=== PATIENT | female | born 1980 | race Hispanic/Latino ===

== ENCOUNTER 2018-03-20 02:29 | Inpatient (IN) | payer OTHER ==
[2018-03-20] MEDS ORDERED: Nicotine 21 MG PATCH TOP SCH (02:45)
[2018-03-20 03:50] LABS: #Eosinphils 0.2 thou/uL (0.0-0.7); #Lymphocytes 3.1 thou/uL (1.20-3.40); #Monocytes 1.2 thou/uL (0.11-0.59); #Neutrophils 9.5 thou/uL (1.40-6.50); %Basophils 0.2 % (0.0-1.0); %Eosinophils 1.7 % (0.0-10.0); %Lymphocytes 22.1 % (21.0-51.0); %Monocytes 8.6 % (0.0-10.0); %Neutrophils 67.4 % (42.0-75.0); Hemoglobin 11.5 g/dL (12.0-16.0); Mean Corpuscular Hemoglobin 33.7 pg (27.0-31.0); Mean Corpuscular Volume 93.5 fL (78.0-98.0); Mean Platelet Volume 7.7 fL (7.4-10.4); Platelet Count 213 thou/uL (130-400); RBC Distribution Width 11.9 % (11.5-14.5); Red Blood Cell (RBC) Count 3.42 mill/uL (4.20-5.40)
[2018-03-20 04:12] LABS: ALT (SGPT) 118 U/L (8-55); AST (SGOT) 50 U/L (5-34); Albumin 3.2 g/dL (3.5-5.0); Alkaline Phosphatase 76 U/L (40-150); Anion Gap 13 mmol/L (10-20); BUN (Urea Nitrogen) 9 mg/dL (7.0-18.7); Bilirubin, Total 0.2 mg/dL (0.2-1.2); Calc. Creatinine Clearance 0 mL/min (70-130); Calcium 8.7 mg/dL (7.8-10.44); Carbon Dioxide 22 mmol/L (22-29); Chloride 104 mmol/L (98-107); Estimated GFR-MDRD Greater than 90; Globulin 2.6 g/dL (2.4-3.5); Glucose 102 mg/dL (70-105); Potassium 3.6 mmol/L (3.5-5.1); Protein, Total 5.8 g/dL (6.0-8.3); Sodium 135 mmol/L (136-145)
[2018-03-20] MEDS ORDERED: Morphine 4 MG/ML VIAL ONE (04:16)
[2018-03-20] MEDS ORDERED: Ondansetron HCl/PF 4 MG/2 ML Vial ONE (04:16)
[2018-03-20] MEDS ORDERED: Promethazine HCl 25 MG/ML VIAL IM PRN (04:32)
[2018-03-20] MEDS ORDERED: Acetaminophen 500 MG TAB PO PRN (04:32)
[2018-03-20] MEDS ORDERED: Ondansetron HCl/PF 4 MG/2 ML Vial IVP PRN (04:32)
[2018-03-20] MEDS ORDERED: Butorphanol Tartrate 1 MG/ML VIAL SLOW IVP PRN (04:32)
[2018-03-20] MEDS ORDERED: cefTRIAXone\\ROCEPHIN 1 GM VIAL ONE (04:42)
[2018-03-20 05:25] VITALS: BMI 49.4
[2018-03-20 05:26] VITALS: BP 119/72
[2018-03-20] MEDS: Sodium Chloride 0.9% 1,000 ML IV SCH ×2 (05:52→21:01)
--- NOTE | 2018-03-20 08:21 | PDOC.LDHP ---
Labor and Delivery H&P Chief complaint: abdominal pain HPI: 37 year old Allergies/Adverse Reactions: Allergies Allergy/AdvReac Type Severity Reaction Status Date / Time No Known Allergies Allergy Unverified 03/14/18 02:31
--- NOTE | 2018-03-20 09:18 | PDOC.LDHP ---
Labor and Delivery H&P Chief complaint: abdominal pain HPI: 37 year at 30.5 wks by LMP/11.5 wk sono with DANIEL of 05/24/2018 that presents with sudden onset RUQ pain and nausea after eating a [employer] taco around 22:00 last night. She states she was out and about with her friend when they decided to stop for food. She denies any emesis or diarrhea. The pain was persistent and sharp, radiating to the back. Patient states she knew right away it was because of the food she ate. She waited until approximately 02:00 to come to hospital because the pain was not well tolerated. Patient denies fever, chills, dysuria, contractions, vaginal bleeding, vaginal discharge, or LoF. She endorses positive movement. Of note, patient was admitted last week for cholecystitis. She improved with nausea medication and antibiotics and was discharged home on Augmentin. Steroids for lung maturity were given during that hospitalization. ROS: General: Denies fever or chills HEENT: Denies headache or vision changes Resp: Denies shortness of breath or cough Card: Denies chest pain or palpitations : Denies dysuria. Endorses increased frequency. 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 GI: See above Dating criteria: last menstrual period, first trimester ultrasound (11.5 wk) Grav: 11 Para: 0 OB History Details: AMA, Obesity, h/o multiple (9) SABs and early intrauterine demise at 31 wks Current complications: none Abnormal US findings: No Current medications: pre- vitamins, other (ASA, Augmentin) Previous surgical history: none Social history: none - Physical Exam Vital signs reviewed and normal: yes General: NAD, resting Heart: RRR Lungs: nonlabored breathing Abdomen: gravid Extremeties: no edema FHT: category 1, variability present - OB Labs Blood type: A RH: positive Antibody Screen: negative HIV: negative RPR: negative HEPSAg: negative Urine drug screen: negative Rubella: immune - Plan -: 37YO AMA @ 30.5 weeks w/ h/o SAB x9 & IUFD @ 31 weeks who comes in with a chief complaint of abdominal pain since 10 PM yesterday. 1. Cholecystitis - Cholelithiasis with findings likely representing acute cholecystitis on abdominal ultrasound. Common bile duct 5-6 mm in diameter. - Positive Singer's sign - Vitals WNL. Afebrile. - s/p one dose of rocephin. Will restart Augmentin as that is what patient was discharged with during last hospitalization. - Will fluid resuscitate and make pt NPO for now - Continue to monitor. Consider consulting general surgery if symptoms persist or worsen. - PRN zofran - Continue to stress importance of diet modification. 2. sIUP @ 30.5 weeks: - NST reassuring with moderate variability. - No contractions on NST. - Will continue to monitor via NST. - Steroids for lung maturity given during last hospitalization. 3. AMA - Patient is following closely w/ MF specialists. 4. h/o SAB & IUFD - Patient is following closely w/ MF specialists. - NST Reassuring. No concerns at this time. Dispo: Plan to monitor patient overnight. Consider consulting general surgery if symptoms persist or worsen. <Tiara Warner - Last Filed: 03/20/18 11:13> <Breana Stuart - Last Filed: 03/21/18 11:00> Allergies/Adverse Reactions: Allergies Allergy/AdvReac Type Severity Reaction Status Date / Time No Known Allergies Allergy Unverified 03/14/18 02:31 Attending Addendum - Attending Addendum Date/Time: 03/21/18 5543 I personally evaluated the patient and discussed the management with Dr. Warner. I agree with the History, Examination, Assessment and Plan documented above with any addition or exceptions noted below. Patient with known cholecystitis admitted after eating fatty foods for fluids, antibiotics, and monitoring. <Breana Stuart - Last Filed: 03/21/18 11:00>
[2018-03-20] MEDS: Aspirin 81 mg Enteric Coated Tablet PO SCH (09:53)
[2018-03-20] MEDS: Amoxicillin/Potassium Clav 500 MG TAB PO SCH ×2 (09:53→21:01)
[2018-03-20] MEDS: Prenatal Vitamin 1 TAB PO SCH (09:53)
--- NOTE | 2018-03-20 09:53 | ULT ---
PRELIMINARY REPORT/[facility]/EMERGENTY AFTER-HOURS PROCEDURE US Abdomen Limited, Right Upper Quadrant CLINICAL HISTORY: 37 years old, female; Pain; Other: Ruq pain, HX of gb disease, 31wks preg; TECHNIQUE: Real-time ultrasound of the right upper quadrant with image documentation. COMPARISON: US Gallbladder RUQ 03/14/2018 4:09 AM FINDINGS: Liver: No acute findings. No mass. No intrahepatic bile duct dilation. Gallbladder: Multiple gallstones with acoustic shadowing. Gallbladder wall thickening and pericholecy stic fluid. Positive Singer's sign. Findings likely represent acute cholecystitis. Common bile duct: Measures about 5-6 mm in diameter. Pancreas: Limited visualization due to bowel gas. Unremarkable as visualized. Right kidney: No acute findings. No stones. No solid mass. No hydronephrosis. IMPRESSION: Cholelithiasis with findings likely representing acute cholecystitis. Thank you for allowing us to participate in the care of your patient. Dictated and Authenticated by: Lake Tompkins MD 03/20/2018 5:21 AM Central Time ([place] & [place]) FINAL REPORT GALLBLADDER ULTRASOUND: Echogenic gallstones are seen in the gallbladder. There is echogenic sludge and gallbladder wall thi ckening. Evidence of pericholecystic fluid. Positive Singer's sign. Cholelithiasis with evidence of cholecystitis. I am in agreement with the preliminary report. POS: FLAKITO
[2018-03-21] MEDS ORDERED: cefTRIAXone\\ROCEPHIN 2 GM in Sodium Chloride 0.9% 100 ML IVPB SCH (05:00)
[2018-03-21] MEDS: Amoxicillin/Potassium Clav 500 MG TAB PO SCH (09:04)
[2018-03-21] MEDS: Prenatal Vitamin 1 TAB PO SCH (09:04)
[2018-03-21] MEDS: Aspirin 81 mg Enteric Coated Tablet PO SCH (09:04)
[2018-03-21 10:05] VITALS: TEMP 98.6
--- NOTE | 2018-03-21 16:11 | DIS ---
DATE OF ADMISSION: 03/20/2018 DATE OF DISCHARGE: 03/21/2018 ADMITTING DIAGNOSES: 1. Acute abdominal pain from known cholelithiasis with a recent history of cholecystitis. 2. Intrauterine at 30 weeks and 5 days. DISCHARGE DIAGNOSES: 1. Acute abdominal pain from known cholelithiasis with a recent history of cholecystitis. 2. Intrauterine at 30 weeks and 5 days. 3. Pain resolved. CONSULTATION: None. HOSPITAL COURSE: The patient is a 37-year-old G11, P0 female with an intrauterine at 30 we eks and 5 days, who represented to labor and delivery on day of admission with sudden onset of right upper quadrant pain after eating [employer]. She has known gallstones and had recently been seen here with that for treatment of cholecystitis, empirically treated for cholecystitis. The patient was ad mitted given her recent history and uncontrolled pain. Over the last 24 plus hours, the patient repo rts that her pain has resolved and she is tolerating a diet well. Once again, she denies any nausea, vomiting, abdominal pain, cramping or bleeding. PHYSICAL EXAMINATION: VITAL SIGNS: Today day of discharge vital signs include a blood pressure of 109/59, heart rate of 66 , respiratory rate of 20, temperature 98.6. GENERAL: She appears to be in no acute distress. She has frequently been walking the halls in the ospital freely and eating without negative effects. Fetus has a tracing with a baseline in the 130s with moderate long-term variability, positive 15 x 15 accelerations, no decelerations and no contract ions on the tocometer. DISCHARGE INSTRUCTIONS: The patient is now being discharged home on hospital day #2 with instruction s to continue her home antibiotic regimen Augmentin until completed for suspected cholecystitis. The patient has also instructions to follow up with the Clinic next Thursday as scheduled for followup.
== END 2018-03-21 10:11 | disposition home or self-care (01) | DRG 781 ==
LOC: ERS 02:29 → SDC/OP 05:05 → L&D 06:11
PROVIDERS: ADMIT Obstetrics & Gynecology; ATTEND Obstetrics & Gynecology
DX: O99.613 Diseases of the digestive system complicating pregnancy, third trimester (principal); Z68.42 Body mass index [BMI] 45.0-49.9, adult; O99.213 Obesity complicating pregnancy, third trimester; E66.9 Obesity, unspecified; O09.523 Supervision of elderly multigravida, third trimester; Z3A.30 30 weeks gestation of pregnancy
CPT/HCPCS: 36415; 76705; 80053; 85025; J0595; J0696; J2270; J2405; J2550; J7050

== ENCOUNTER 2018-05-18 10:19 | Inpatient (IN) | payer OTHER ==
--- NOTE | 2018-05-18 18:31 | PDOC.FPROB ---
FMR OB H&P: HPI - History of Present Illness Chief Complaint: Elective IOL Indentification: at 39.1 wks History of Present Illness: 37 year old at 39.1 wks by LMP/11.5 wk sono with DANIEL of 05/24/2018 presents to L&D for elective IOL. Patient with 9 prior SAB's, AMA, obesity, and hx of IUFD at 31 wks. All risks were discussed with patient, and patient agrees to proceed with induction. Patient denies any vaginal bleeding, vaginal discharge, LoF, or contractions. Patient endorses good movement. 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 - Family History Family History: Insignificant FMR OB H&P: Medications - Current Home Medications: Medication Instructions Recorded Confirmed Type Aspirin [Lo-Dose Aspirin EC] 1 tablet PO DAILY 03/14/18 05/18/18 History Pnv No.95/Ferrous Fum/Folic AC 1 tablet PO DAILY 03/14/18 05/18/18 History [ Multivitamin Tablet] Allergies/Adverse Reactions: Allergies Allergy/AdvReac Type Severity Reaction Status Date / Time No Known Allergies Allergy Verified 05/18/18 22:36 FMR OB H&P: ROS - Review of Systems General: reports: fatigue. denies: fever/chills, recent trauma Eyes: denies: vision changes, double vision ENT: denies: nasal congestion, rhinorrhea, sore throat Cardiovascular: denies: chest pain Respiratory: denies: cough, shortness of breath Gastrointestinal: denies: abdominal pain, nausea, vomiting, diarrhea, constipation Genitourinary (Female): denies: dysuria, hematuria, vaginal discharge, vaginal pain, vaginal bleeding, contractions, vaginal pressure Musculoskeletal: denies: redness, swelling Neurologic: denies: seizures, loss of counsciousness Integumentary: denies: rash Endocrine: denies: cold intolerance, heat intolerance Hematologic/Lymphatic: denies: prolonged or excessive bleeding Psychological: denies: depression, anxiety FMR OB H&P: Vital Signs - Heart Tones Baseline: 140 Variability: moderate Acceleration: absent Deceleration: absent Category: category 1 [place] contractions every: not observed FMR OB H&P: Physical Exam - Physical Exam General: NAD, awake, alert and oriented HEENT: normocephalic and atraumatic, PERRLA, EOMI, MMM, conjunctiva clear, no scleral icterus, good dention Neck: supple, FROM Chest: non-tender to palpation, no lesions Heart: RRR, normal S1/S2, no murmurs/rubs/gallops General: CTAB, no respiratory distress, good air movement, no rales/rhonchi, no wheezing, no retractions Abdomen: gravid, non-tender Musculoskeletal: pulses present Neurological: no focal deficit Skin: no rash, good tugor, capillary refill <2 seconds Lymphatic: no unusual bruising or bleeding, no purpura Psychiatric: good judgement and insight, normal mood and affect - Pelvic Exam Cervix: no masses SVE: 1/50/-2 [place] score: 5 Membranes: intact FMR OB H&P: A/P - Problem List (1) Encounter for elective induction of labor Status: Acute Code(s): Z34.90 - ENCNTR FOR SUPRVSN OF NORMAL , UNSP, UNSP TRIMESTER (2) Obesity Status: Chronic Code(s): E66.9 - OBESITY, UNSPECIFIED (3) History of IUFD Status: Chronic Code(s): Z87.59 - PERSONAL HISTORY OF COMP OF PREG, CHLDBRTH AND THE PUERP (4) Advanced maternal age (AMA) in Status: Acute Code(s): [id number] - Disposition: Stable. Admit to L&D for induction. Discussion: Date/Time: 05/18/181828 This H&P was discussed with Dr. Chowdary who agrees with the above documentation and plan. Signature: Tiara Warner DO PGY-2 Attending Addendum - Attending Addendum Date/Time: 05/19/18 7390 I personally evaluated the patient and discussed the management with Dr. Lala. I agree with the History, Examination, Assessment and Plan documented above with any addition or exceptions noted below.
[2018-05-18] MEDS ORDERED: NS / Oxytocin 40 units/1000ml 1,000 ML IV PRN (18:47)
[2018-05-18] MEDS ORDERED: Acetaminophen 500 MG TAB PO PRN (18:47)
[2018-05-18] MEDS ORDERED: Promethazine HCl 25 MG/ML VIAL IM PRN (18:47)
[2018-05-18] MEDS ORDERED: Ondansetron PF 4 MG/2 ML Vial IVP PRN (18:47)
[2018-05-18] MEDS ORDERED: Ibuprofen 800 MG TAB PO PRN (18:47)
[2018-05-18] MEDS ORDERED: Docusate 100 MG CAP PO PRN (18:47)
[2018-05-18] MEDS ORDERED: Lidocaine 1% (PF) 30 ML VIAL SC PRN (18:47)
[2018-05-18 22:35] VITALS: BMI 49.9
[2018-05-18] MEDS: Lactated Ringer's 1,000 ML IV SCH (23:00)
[2018-05-18] MEDS: Misoprostol 100 MCG TAB VAG SCH (23:25)
--- NOTE | 2018-05-18 23:36 | PDOC.EVN ---
Event Note - Event Note Event Note: Date/Time: 05/18/18 0091 I personally evaluated the patient and discussed the management with Dr. Lala. Dr Youssef's H&P reviewed. I agree with the History, Examination, Assessment and Plan documented above with any addition or exceptions noted below. Vitals are normal. FHR is Cat 1. No significant CTXs noted. Cervix is 1/50/-3, soft midposition. [place] is 4. Cytotec induction will be initiated.
[2018-05-18 23:39] LABS: Mean Corpuscular HGB CONC 34.3 g/dL (32.0-36.0); Mean Corpuscular Hemoglobin 32.5 pg (27.0-31.0); Mean Corpuscular Volume 94.5 fL (78.0-98.0); Mean Platelet Volume 7.8 fL (7.4-10.4); Platelet Count 237 thou/uL (130-400); RBC Distribution Width 12.4 % (11.5-14.5); Red Blood Cell (RBC) Count 3.71 mill/uL (4.20-5.40); White Blood Cell (WBC) Count 12.1 thou/uL (4.8-10.8)
[2018-05-19 00:16] LABS: HBSAg Index 0.16 S/CO (0-0.99); Hep B Surf Ag Non-Reactive S/CO (NonReactive); Syphilis Antibody Nonreactive (Nonreactive); Syphilis Antibody Index 0.03 S/CO (<1.00 Non-Reactive)
[2018-05-19] MEDS: Misoprostol 100 MCG TAB VAG SCH (02:30)
--- NOTE | 2018-05-19 03:09 | PDOC.LDPN ---
Labor & Delivery Progress Note - Subjective Subjective: comfortable - Objective Vital signs reviewed and normal: yes General: NAD Uterine fundus: non tender Dilation: 1 Effacement: 50% Station: -2 FHT: category 1 [place] contractions every: not observed - Assessment (1) Advanced maternal age (AMA) in Code(s): [id number] - Current Visit: No Status: Acute (2) Encounter for elective induction of labor Code(s): Z34.90 - ENCNTR FOR SUPRVSN OF NORMAL , UNSP, UNSP TRIMESTER Current Visit: No Status: Acute (3) History of IUFD Code(s): Z87.59 - PERSONAL HISTORY OF COMP OF PREG, CHLDBRTH AND THE PUERP Current Visit: No Status: Chronic (4) Obesity Code(s): E66.9 - OBESITY, UNSPECIFIED Current Visit: No Status: Chronic (5) History of spontaneous , currently Code(s): O09.299 - SUPRVSN OF PREG W POOR REPRODCTV OR OBSTET HISTORY, UNSP TRI Current Visit: No Status: Resolved Plan: continue plan of care -: 37 year old AMA at 39.1 wks with h/o of SAB x9, IUFD at 31 wks, and cholecystitis in current presents for elective IOL 1. Elective IOL -SVE unchanged, still at /50/-2 after cytotec x1 -Will give another dose of cytotec, recheck in 3 hours - Category I strip 2. sIUP at 39.1 wks - See plan as above 3. AMA - Pt has been following with MFM 4. h/o SAB - x9 - Workup negative - Pt followed with MFM during 5. h/o IUFD - at 31 wks
--- NOTE | 2018-05-19 06:12 | PDOC.LDPN ---
Labor & Delivery Progress Note - Subjective Subjective: comfortable, vaginal pressure - Objective Vital signs reviewed and normal: yes General: NAD, breathing through contractions Uterine fundus: non tender Dilation: 1.5 Effacement: 50% Station: -2 FHT: category 1 [place] contractions every: 2min - Assessment (1) Encounter for elective induction of labor Code(s): Z34.90 - ENCNTR FOR SUPRVSN OF NORMAL , UNSP, UNSP TRIMESTER Current Visit: No Status: Acute (2) Obesity Code(s): E66.9 - OBESITY, UNSPECIFIED Current Visit: No Status: Chronic (3) History of IUFD Code(s): Z87.59 - PERSONAL HISTORY OF COMP OF PREG, CHLDBRTH AND THE PUERP Current Visit: No Status: Chronic (4) Advanced maternal age (AMA) in Code(s): [id number] - Current Visit: No Status: Acute (5) History of spontaneous , currently Code(s): O09.299 - SUPRVSN OF PREG W POOR REPRODCTV OR OBSTET HISTORY, UNSP TRI Current Visit: No Status: Resolved Plan: continue plan of care -: 37 year old AMA at 39.1 wks with h/o of SAB x9, IUFD at 31 wks, and cholecystitis in current presents for elective IOL 1. Elective IOL -SVE: 1.5/2/-2 -s/p cytotec x2 - Category I strip - difficulty picking up CTX, repositioned and now showing CTX q2min. Will hold cytotec for now and continue to watch CTX pattern 2. sIUP at 39.1 wks - See plan as above 3. AMA - Pt has been following with MFM 4. h/o SAB - x9 - Workup negative - Pt followed with MFM during 5. h/o IUFD - at 31 wks
[2018-05-19] MEDS: Lactated Ringer's 1,000 ML IV SCH ×3 (07:06→23:04)
--- NOTE | 2018-05-19 07:17 | PDOC.LDPN ---
Labor & Delivery Progress Note - Subjective Subjective: comfortable - Objective Vital signs reviewed and normal: yes General: NAD Uterine fundus: non tender SVE: by nurse Dilation: 1 Effacement: 50% Station: -2 FHT: category 1 [place] contractions every: q2-4 min - Assessment (1) Encounter for elective induction of labor Code(s): Z34.90 - ENCNTR FOR SUPRVSN OF NORMAL , UNSP, UNSP TRIMESTER Current Visit: No Status: Acute (2) Obesity Code(s): E66.9 - OBESITY, UNSPECIFIED Current Visit: No Status: Chronic (3) History of IUFD Code(s): Z87.59 - PERSONAL HISTORY OF COMP OF PREG, CHLDBRTH AND THE PUERP Current Visit: No Status: Chronic (4) Advanced maternal age (AMA) in Code(s): [id number] - Current Visit: No Status: Acute (5) History of spontaneous , currently Code(s): O09.299 - SUPRVSN OF PREG W POOR REPRODCTV OR OBSTET HISTORY, UNSP TRI Current Visit: No Status: Resolved Plan: continue plan of care, labor augmentation -: 37 year old AMA at 39.2 wks with h/o of SAB x9, IUFD at 31 wks, and cholecystitis in current presents for elective IOL 1. Elective IOL - SVE: 1.5/2/-2 at 6:05 - s/p cytotec x2 - Category I strip - CTX q2-4min. Will hold cytotec for now and continue to watch CTX pattern. 2. sIUP at 39.2 wks - See plan as above 3. AMA - Pt has been following with MFM 4. h/o SAB - x9 - Workup negative - Pt followed with MFM during 5. h/o IUFD - at 31 wks Dispo: Stable. Patient may benefit from placement of balloon if not able to tolerate cytotec d/t too many contractions.
--- NOTE | 2018-05-19 09:04 | PDOC.LDPN ---
Labor & Delivery Progress Note - Subjective Subjective: comfortable - Objective Vital signs reviewed and normal: yes General: NAD, resting Dilation: 1.5 Effacement: 50% Station: -1 FHT: category 1 (130/mod/+accel/no decel) [place] contractions every: 2-3 min - Assessment (1) Advanced maternal age (AMA) in Code(s): [id number] - Current Visit: No Status: Acute (2) Encounter for elective induction of labor Code(s): Z34.90 - ENCNTR FOR SUPRVSN OF NORMAL , UNSP, UNSP TRIMESTER Current Visit: No Status: Acute (3) History of IUFD Code(s): Z87.59 - PERSONAL HISTORY OF COMP OF PREG, CHLDBRTH AND THE PUERP Current Visit: No Status: Chronic (4) Obesity Code(s): E66.9 - OBESITY, UNSPECIFIED Current Visit: No Status: Chronic (5) History of spontaneous , currently Code(s): O09.299 - SUPRVSN OF PREG W POOR REPRODCTV OR OBSTET HISTORY, UNSP TRI Current Visit: No Status: Resolved Plan: continue plan of care -: 37 year old AMA at 39.2 wks with h/o of SAB x9, IUFD at 31 wks, and cholecystitis in current presents for elective IOL 1. Elective IOL - SVE: 1.5/50/-1 at 0900 - s/p cytotec x2 - Category I strip - CTX q2-3min. Will hold cytotec for now and continue to watch CTX pattern. 2. sIUP at 39.2 wks - See plan as above 3. AMA - Pt has been following with MFM 4. h/o SAB - x9 - Workup negative - Pt followed with MFM during 5. h/o IUFD - at 31 wks Dispo: Stable. Considering limited cervical change, plan for balloon insertion.
[2018-05-19] MEDS ORDERED: Butorphanol Tartrate 1 MG/ML VIAL ONE (09:21)
[2018-05-19] MEDS ORDERED: Butorphanol Tartrate 1 MG/ML VIAL SLOW IVP PRN (09:25)
--- NOTE | 2018-05-19 11:18 | PDOC.LDPN ---
Labor & Delivery Progress Note - Subjective Subjective: other (mild to moderate cramping) - Objective Vital signs reviewed and normal: yes General: resting Uterine fundus: non tender SVE: 1-2/75%/-2 FHT: category 1 [place] contractions every: q2 min -: 1) IUP@39 1/7 weeks with h/o recurrent abs and demise- cytotec x2 placed and ctx q2 min- balloon placed with Dr. Stuart's assistance. Currently filled to 40/40 and will increase shortly to 80/80. Category 1 FHTs.
--- NOTE | 2018-05-19 15:59 | PDOC.LDPN ---
Labor & Delivery Progress Note - Subjective Subjective: comfortable - Objective Vital signs reviewed and normal: yes General: NAD Uterine fundus: tender to palpation SVE: Balloon in place; did not fall out when tugged on at 15:00 FHT: category 1 [place] contractions every: Irregular Procedures: Added 20 cc to each balloon (cook's balloon) for total of 80 cc each - Assessment (1) Encounter for elective induction of labor Code(s): Z34.90 - ENCNTR FOR SUPRVSN OF NORMAL , UNSP, UNSP TRIMESTER Current Visit: No Status: Acute (2) Obesity Code(s): E66.9 - OBESITY, UNSPECIFIED Current Visit: No Status: Chronic (3) History of IUFD Code(s): Z87.59 - PERSONAL HISTORY OF COMP OF PREG, CHLDBRTH AND THE PUERP Current Visit: No Status: Chronic (4) Advanced maternal age (AMA) in Code(s): [id number] - Current Visit: No Status: Acute (5) History of spontaneous , currently Code(s): O09.299 - SUPRVSN OF PREG W POOR REPRODCTV OR OBSTET HISTORY, UNSP TRI Current Visit: No Status: Resolved Plan: continue plan of care -: 37 year old AMA at 39.2 wks with h/o of SAB x9, IUFD at 31 wks, and cholecystitis in current presents for elective IOL 1. Elective IOL - Balloon placed at 11:15 AM; did not fall out when tugged on at 15:00 - Remove balloon by 23:00 - s/p cytotec x2; liya too much for additional cytotec - Category I strip; reactive - CTX q4-7 minutes; not picking up contractions well on monitor 2. sIUP at 39.2 wks - See plan as above 3. AMA - Pt has been following with MFM 4. h/o SAB - x9 - Workup negative - Pt followed with MFM during 5. h/o IUFD - at 31 wks Dispo: Stable. Remove balloon at 23:00. Filled to 80/80 cc at 15:00.
[2018-05-19] MEDS: NS w/ Oxytocin 10 units 500 ML IV SCH (17:20)
--- NOTE | 2018-05-19 18:05 | PDOC.EVN ---
Event Note - Event Note Event Note: Patient started on pitocin around 17:00. Category I strip. Reactive. Continue current management. Balloon needs to be removed by 23:15 (12 hours). Tiara Warner, PGY-2
--- NOTE | 2018-05-20 01:29 | PDOC.LDPN ---
Labor & Delivery Progress Note - Subjective Subjective: comfortable, vaginal pressure - Objective Vital signs reviewed and normal: yes General: NAD Uterine fundus: non tender Dilation: 5 Effacement: 75% Station: -1 FHT: category 1 [place] contractions every: 3-4min - Assessment (1) Encounter for elective induction of labor Code(s): Z34.90 - ENCNTR FOR SUPRVSN OF NORMAL , UNSP, UNSP TRIMESTER Current Visit: No Status: Acute (2) Obesity Code(s): E66.9 - OBESITY, UNSPECIFIED Current Visit: No Status: Chronic (3) History of IUFD Code(s): Z87.59 - PERSONAL HISTORY OF COMP OF PREG, CHLDBRTH AND THE PUERP Current Visit: No Status: Chronic (4) Advanced maternal age (AMA) in Code(s): [id number] - Current Visit: No Status: Acute (5) History of spontaneous , currently Code(s): O09.299 - SUPRVSN OF PREG W POOR REPRODCTV OR OBSTET HISTORY, UNSP TRI Current Visit: No Status: Resolved
--- NOTE | 2018-05-20 01:32 | PDOC.LDPN ---
Labor & Delivery Progress Note - Subjective Subjective: comfortable - Objective Vital signs reviewed and normal: yes General: NAD Uterine fundus: non tender Dilation: 5 Effacement: 75% Station: -1 FHT: category 1 [place] contractions every: 3-4min - Assessment (1) Encounter for elective induction of labor Code(s): Z34.90 - ENCNTR FOR SUPRVSN OF NORMAL , UNSP, UNSP TRIMESTER Current Visit: No Status: Acute (2) Obesity Code(s): E66.9 - OBESITY, UNSPECIFIED Current Visit: No Status: Chronic (3) History of IUFD Code(s): Z87.59 - PERSONAL HISTORY OF COMP OF PREG, CHLDBRTH AND THE PUERP Current Visit: No Status: Chronic (4) Advanced maternal age (AMA) in Code(s): [id number] - Current Visit: No Status: Acute (5) History of spontaneous , currently Code(s): O09.299 - SUPRVSN OF PREG W POOR REPRODCTV OR OBSTET HISTORY, UNSP TRI Current Visit: No Status: Resolved Plan: continue plan of care -: 37 year old AMA at 39.1 wks with h/o of SAB x9, IUFD at 31 wks, and cholecystitis in current presents for elective IOL 1. Elective IOL -SVE: /-1 -s/p [place] balloon removal @ 2330 -s/p cytotec x2 - Category I strip - difficulty picking up CTX, will consider placement of IUPC and AROM at next check in 2 hours 2. sIUP at 39.1 wks - See plan as above 3. AMA - Pt has been following with MFM 4. h/o SAB - x9 - Workup negative - Pt followed with MFM during 5. h/o IUFD - at 31 wks
--- NOTE | 2018-05-20 02:58 | PDOC.LDPN ---
Labor & Delivery Progress Note - Objective Vital signs reviewed and normal: yes General: NAD Uterine fundus: non tender Dilation: 5 Effacement: 50% Station: -1 FHT: category 1 (normal baseline, accels present. ) [place] contractions every: 2-3 minutes AROM: clear fluid - Assessment (1) Encounter for elective induction of labor Code(s): Z34.90 - ENCNTR FOR SUPRVSN OF NORMAL , UNSP, UNSP TRIMESTER Current Visit: No Status: Acute Comment: AROM. head is engaged. [place] to pass IUPC passed head. Continue pitocin and care. (2) Obesity Code(s): E66.9 - OBESITY, UNSPECIFIED Current Visit: No Status: Chronic (3) History of IUFD Code(s): Z87.59 - PERSONAL HISTORY OF COMP OF PREG, CHLDBRTH AND THE PUERP Current Visit: No Status: Chronic (4) Advanced maternal age (AMA) in Code(s): [id number] - Current Visit: No Status: Acute
[2018-05-20] MEDS ORDERED: Fentanyl 4 mcg/Bup 0.1% Cadd 100 ML ONE ×3 (03:16→20:12)
[2018-05-20] MEDS ORDERED: Naloxone HCl 0.4 mg/ml Vial IVP PRN ×2 (04:07)
[2018-05-20] MEDS ORDERED: Acetaminophen 325 MG TAB PO PRN (04:07)
[2018-05-20] MEDS ORDERED: Promethazine HCl 25 MG/ML VIAL IM PRN (04:07)
[2018-05-20] MEDS ORDERED: diphenhydrAMINE 50 MG/ML VIAL IVP PRN (04:07)
[2018-05-20] MEDS ORDERED: ePHEDrine/0.9% NaCl/PF SYRINGE 50 mg/10 ml SLOW IVP PRN (04:07)
[2018-05-20] MEDS ORDERED: Ondansetron PF 4 MG/2 ML Vial IVP PRN (04:07)
[2018-05-20] MEDS ORDERED: Hydrocerin (Eucerin) Cream 120 gm Jar TOP PRN (04:07)
[2018-05-20] MEDS ORDERED: Lactated Ringer's 500 ML IV PRN (04:07)
[2018-05-20] MEDS: Lactated Ringer's 1,000 ML IV SCH ×2 (04:10→23:05)
[2018-05-20] MEDS ORDERED: Communication Order-Pharmacy FS SCH (04:15)
[2018-05-20] MEDS ORDERED: Fentanyl 4 mcg/Bupivacaine 0.1% Cassette 100 ML EPIDURAL SCH (04:15)
--- NOTE | 2018-05-20 06:27 | PDOC.LDPN ---
Labor & Delivery Progress Note - Assessment (1) Encounter for elective induction of labor Code(s): Z34.90 - ENCNTR FOR SUPRVSN OF NORMAL , UNSP, UNSP TRIMESTER Current Visit: No Status: Acute Comment: AROM. head is engaged. [place]ale to pass IUPC passed head. Continue pitocin and care. (2) Obesity Code(s): E66.9 - OBESITY, UNSPECIFIED Current Visit: No Status: Chronic (3) History of IUFD Code(s): Z87.59 - PERSONAL HISTORY OF COMP OF PREG, CHLDBRTH AND THE PUERP Current Visit: No Status: Chronic (4) Advanced maternal age (AMA) in Code(s): [id number] - Current Visit: No Status: Acute (5) History of spontaneous , currently Code(s): O09.299 - SUPRVSN OF PREG W POOR REPRODCTV OR OBSTET HISTORY, UNSP TRI Current Visit: No Status: Resolved
--- NOTE | 2018-05-20 09:25 | PDOC.LDPN ---
Labor & Delivery Progress Note - Subjective Subjective: comfortable, no concerns - Objective Vital signs reviewed and normal: yes General: NAD Dilation: 6 Effacement: 100% Station: -1 FHT: category 1 (130/mod/pos accel/no decel) [place] contractions every: 2 min AROM: clear fluid IUPC placed: yes Resuscitative measures: maternal IV fluids, maternal position change - Assessment (1) Advanced maternal age (AMA) in Code(s): [id number] - Current Visit: No Status: Acute (2) Encounter for elective induction of labor Code(s): Z34.90 - ENCNTR FOR SUPRVSN OF NORMAL , UNSP, UNSP TRIMESTER Current Visit: No Status: Acute Comment: AROM. head is engaged. IUPC in place. Cat 1. No cervical change since last check. Continue current management. (3) History of IUFD Code(s): Z87.59 - PERSONAL HISTORY OF COMP OF PREG, CHLDBRTH AND THE PUERP Current Visit: No Status: Chronic (4) Obesity Code(s): E66.9 - OBESITY, UNSPECIFIED Current Visit: No Status: Chronic Plan: continue plan of care, pitocin for augmentation
--- NOTE | 2018-05-20 10:51 | PDOC.LDPN ---
Labor & Delivery Progress Note - Subjective Subjective: comfortable, vaginal pressure - Objective Vital signs reviewed and normal: yes General: NAD Dilation: 7 Effacement: 100% Station: -1 FHT: category 1 (130/mod/+accel/no decel) [place] contractions every: 2-3 min AROM: clear fluid IUPC placed: yes - Assessment (1) Advanced maternal age (AMA) in Code(s): [id number] - Current Visit: No Status: Acute (2) Encounter for elective induction of labor Code(s): Z34.90 - ENCNTR FOR SUPRVSN OF NORMAL , UNSP, UNSP TRIMESTER Current Visit: No Status: Acute Comment: AROM. head is engaged. IUPC in place. Cat 1. Has epidural. Making cervical change. Continue current management. (3) History of IUFD Code(s): Z87.59 - PERSONAL HISTORY OF COMP OF PREG, CHLDBRTH AND THE PUERP Current Visit: No Status: Chronic (4) Obesity Code(s): E66.9 - OBESITY, UNSPECIFIED Current Visit: No Status: Chronic
[2018-05-20] MEDS: NS w/ Oxytocin 10 units 500 ML IV SCH (14:40)
[2018-05-20] MEDS ORDERED: CEFAZOLIN/Water 2 GM/20 ML SYRINGE ONE (21:42)
[2018-05-20] MEDS ORDERED: Bicitra 30 ML UDCUP ONE (21:42)
--- NOTE | 2018-05-20 21:48 | PDOC.LDPN ---
Labor & Delivery Progress Note - Subjective Subjective: comfortable, other (patinet has been complete for several hours (~ 5pm). Has been pushing with day team, with rest breaks. Despite maternal position changes, asynclitic presentation has not resolved. No descent since the start of the second stage.) - Objective Vital signs reviewed and normal: yes General: NAD Uterine fundus: non tender Dilation: Complete Effacement: 100% Station: 0 FHT: category 1 (moderate variabilty, accels present. Accel with scalp stim during exam.) [place] contractions every: 2-5 min Other exam findings: occiput anterior, asynclitic to matermal right AROM: clear fluid IUPC placed: yes FSE placed: yes - Assessment (1) Arrested labor Code(s): O62.1 - SECONDARY UTERINE INERTIA Current Visit: Yes Status: Acute Comment: Second stage, Due to malpostion, asynclitic. Recommended proceding with cesaran delivery. Discussed Risks benefits and alternatives. Patient is tired and prefers delivery. Risks include bleeding, hysterectomy, anesthesia complications, and . Nurses and Anesthesia notified. (2) Encounter for elective induction of labor Code(s): Z34.90 - ENCNTR FOR SUPRVSN OF NORMAL , UNSP, UNSP TRIMESTER Current Visit: No Status: Acute (3) Obesity Code(s): E66.9 - OBESITY, UNSPECIFIED Current Visit: No Status: Chronic (4) History of IUFD Code(s): Z87.59 - PERSONAL HISTORY OF COMP OF PREG, CHLDBRTH AND THE PUERP Current Visit: No Status: Chronic (5) Advanced maternal age (AMA) in Code(s): [id number] - Current Visit: No Status: Acute
[2018-05-20] MEDS ORDERED: Lidocaine 2% 10 ML INJ ONE (22:22)
[2018-05-20] MEDS ORDERED: Ondansetron PF 4 MG/2 ML Vial ONE (23:13)
[2018-05-20] MEDS ORDERED: Oxytocin 10 UNITS/ML VIAL ONE (23:13)
[2018-05-20] MEDS ORDERED: Morphine PF 1 MG/ML SYR ONE (23:13)
[2018-05-20] MEDS ORDERED: ePHEDrine/0.9% NaCl/PF SYRINGE 50 mg/10 ml ONE (23:14)
[2018-05-20] MEDS ORDERED: Methylergonovine 0.2 MG/ML VIAL ONE (23:59)
[2018-05-21] MEDS ORDERED: Misoprostol 200 MCG TAB ONE (00:02)
[2018-05-21] MEDS ORDERED: Midazolam HCl 2 mg/2 ml Vial ONE (00:04)
[2018-05-21] MEDS ORDERED: Fentanyl 100 MCG/2 ML VIAL ONE ×3 (00:05→00:24)
[2018-05-21] MEDS ORDERED: Bupivacaine 0.25% HCL 30 ML VIAL ONE (00:14)
[2018-05-21] MEDS ORDERED: Oxytocin 10 UNITS/ML VIAL ONE (00:16)
[2018-05-21] MEDS ORDERED: diphenhydrAMINE 50 MG/ML VIAL IVP PRN (00:43)
[2018-05-21] MEDS ORDERED: Promethazine HCl 25 MG SUPP PR PRN (00:43)
[2018-05-21] MEDS ORDERED: Naloxone HCl 0.4 mg/ml Vial IVP PRN ×2 (00:43)
[2018-05-21] MEDS ORDERED: Promethazine HCl 25 MG/ML VIAL IM PRN (00:43)
[2018-05-21] MEDS ORDERED: Ondansetron PF 4 MG/2 ML Vial IVP PRN ×2 (00:43→03:27)
[2018-05-21] MEDS ORDERED: Naloxone HCl 0.4 mg/ml Vial IV PRN (00:43)
[2018-05-21] MEDS ORDERED: Hydrocerin (Eucerin) Cream 120 gm Jar TOP PRN (00:43)
[2018-05-21] MEDS ORDERED: Communication Order-Pharmacy FS SCH (00:45)
[2018-05-21] MEDS ORDERED: Adacel (T-DAP) 0.5 ML VIAL IM ONE (03:27)
[2018-05-21] MEDS ORDERED: Lanolin Ointment 7 GM TUBE TOP PRN (03:27)
[2018-05-21] MEDS ORDERED: NS / Oxytocin 40 units/1000ml 1,000 ML IV SCH (03:27)
[2018-05-21] MEDS ORDERED: HYDROcodone/Acetaminophen 5/325 mg Tablet PO PRN ×3 (03:27→12:45)
[2018-05-21] MEDS ORDERED: Acetaminophen 325 MG TAB PO PRN (03:27)
[2018-05-21] MEDS: Ketorolac Tromethamine 30 MG/ML VIAL IVP PRN ×2 (03:52→12:53)
[2018-05-21] MEDS ORDERED: Acetaminophen 1,000 MG in Premix Bag 1 BAG IVPB SCH (04:45)
[2018-05-21] MEDS: Clindamycin/D5W 900 MG in Premix Bag 1 BAG IVPB SCH ×3 (04:59→21:48)
[2018-05-21] MEDS: Gentamicin Sulfate 400 MG in Sodium Chloride 0.9% 100 ML IVPB SCH (05:00)
[2018-05-21 06:34] LABS: Hemoglobin 11.3 g/dL (12.0-16.0); Mean Corpuscular HGB CONC 34.2 g/dL (32.0-36.0); Mean Corpuscular Hemoglobin 32.8 pg (27.0-31.0); Mean Corpuscular Volume 96.1 fL (78.0-98.0); Mean Platelet Volume 7.9 fL (7.4-10.4); Platelet Count 196 thou/uL (130-400); RBC Distribution Width 12.3 % (11.5-14.5); Red Blood Cell (RBC) Count 3.45 mill/uL (4.20-5.40); White Blood Cell (WBC) Count 24.5 thou/uL (4.8-10.8)
[2018-05-21] MEDS: Lactated Ringer's 1,000 ML IV SCH (08:26)
[2018-05-21] MEDS: Ferrous Sulfate 325 MG TAB PO SCH ×2 (08:26→09:09)
--- NOTE | 2018-05-21 08:27 | PDOC.OPDEL ---
OB Operative/Delivery Note Delivery Dr/Surgeon: Timmy Assist: Epi Briones Pre-Delivery Diagnosis: other (Failed induction of labor, arrest of second stage of labor (failure to descend)) Procedure/Post Delivery Dx: primary low transverse CS Weeks gestation: 39 (39.2 wks) Anesthesia: epidural - Findings A Sex: male - 1 min: 8 - 5 min: 9 - Additional Findings/Plan Placenta delivered: manual removal findings: low transverse hysterotomy without extension, normal uterus, normal tubes, normal ovaries Estimated blood loss: 1005 mL QBL Compilations/Other Findings: Procedure Note Date of Procedure: 05/20/2018 Resident Surgeon: Timmy Family Educator Surgeon: Anali Attending Surgeon: Epi Procedure: Primary low transverse caesarean section Preoperative Diagnosis: 1)Term intrauterine 2)Failed induction of labor; prolonged second stage of labor, failure of descent 3)Cholecystitis, diet controlled 4)Hx of SAB x9 Postoperative Diagnosis: 1)Term intrauterine , delivered 2)pLTCS 3)Same as above Anesthesia: Epidural Indications: The patient is a 37 year old G11,P0190 female at 39.3 weeks gestation who presented to L&D for elective induction of labor. Patient with prolonged second stage of labor and failure to descend. C/S was discussed in detail with patient, and patient desired to proceed with ceserean delivery. Procedure in Detail: After risks, benefits, and alternatives were explained to the patient, she gave informed consent. Pre-operative antibiotics included Cefazolin 2 gram IV. The patient was taken to the operating room. She was placed in the supine position with a left tilt and prepped and draped in usual sterile fashion. A Pfannenstiel incision was made with a scalpel and carried down to the level of the fascia which was sharply nicked. The fascial cut was extended bilaterally with Swatara sissors. The inferior and superior edges of the cut fascial edges were elevated with Kristina clamps and the underlying rectus muscles were sharply and bluntly dissected free. The recti were divided digitally and retracted manually. The peritoneum was entered bluntly and retracted manually. An Go O was placed in the abdomen. A low transverse score was made with the scalpel and the uterus was entered in the midline with the scalpel. Clear fluid was seen. The hysterotomy was extended manually. The infant was noted to be vertex and was delivered by fundal pressure. Mouth and nares were bulb suctioned. Cord clamped and cut and grossly normal male was handed to waiting nurse. Cord blood was obtained. Placenta was manually extracted, found to be intact with 3 vessel cord and discarded. The uterus was externalized and the endometrium was curetted with a dry lap. The uterus was closed with a running locking 0-Vicryl suture. Following this hemostasis was noted. The abdomen was irrigated with saline and suctioned free of clots. The uterus was internalized and the hysterotomy was again noted to be hemostatic. The peritoneum was closed using 2-0 Vicryl. The fascia was closed with a running non-locking 0-Vicryl suture. The subcutaneous tissue was irrigated and there were no bleeders. A running non-locking 2-0 plain gut suture was used to approximate the subcutaneous tissue. The skin was approximated with yelena and a pressure dressing was placed. All counts were correct. The patient tolerated the procedure well and was taken to the recovery room in stable condition. Quantitative Blood Loss: 1005 ml Complications: None Specimens: Cord blood sent to lab for blood type Findings: Grossly normal male infant with apgars of 8 and 9. Grossly normal placenta with 3 vessel cord discarded. Drains: Campos to gravity draining clear urine Post delivery plan: routine recovery <Tiara Warnre - Last Filed: 05/21/18 08:58> Attending Addendum - Attending Addendum Date/Time: 05/25/18 0800 additional pre- and post-op diagnosis of malpresentation (asynclitic). I personally supervised and assisted with the procedure. <Darinel Chowdary - Last Filed: 05/25/18 08:01>
--- NOTE | 2018-05-21 08:30 | PDOC.EVN ---
Event Note - Event Note Event Note: Pt had fever of 101. Started gentamicin and clindamycin due to concern for fever from prolonged laboring with resulting C section. AVSS at that time.
[2018-05-21] MEDS: Prenatal Vitamin 1 TAB PO SCH (09:09)
[2018-05-21] MEDS: Docusate Calcium (SURFAK) 240 MG CAP PO SCH ×2 (09:09→21:49)
--- NOTE | 2018-05-21 12:02 | PDOC.PP ---
Post Progress Note Post Day #: 1 Subjective: Patient doing well. She spiked a fever very early this morning and was started on Clindamycin and Gentamicin, but she states she feels well and is otherwise asymptomatic. Her pain is very well controlled, and she is not experiencing a lot of abdominal pain. is feeding well. Patient is tolerating PO. PO intake tolerated: yes Flatus: yes Ambulation: yes Vital Signs (12 hours) Temp Pulse Resp BP Pulse Ox 05/21/18 11:53 98.5 F 69 20 96/54 L 05/21/18 08:24 98.4 F 74 20 98/56 L 96 05/21/18 04:00 100.1 F H 81 20 114/60 05/21/18 03:00 100.1 F H 84 20 108/59 L 100 05/21/18 02:40 101.1 F H 83 18 125/67 100 Weight Weight 123.831 kg - Physical Examination General: NAD Cardiovascular: RRR Respiratory: non-labored breathing Abdominal: lochia (scant), no distention, appropriately TTP Fundus firm & at: umbilicus Extremities: negative homans (B) Skin: CS incision dry & intact, no rash Neurological: no gross focal deficits Psychiatric: A&Ox3, normal affect Result Diagrams: 05/21/18 06:05 Additional Labs: Post Labs Blood Type A NEGATIVE 05/18/18 23:00 Hep Bs Antigen Non-Reactive S/CO (NonReactive) 05/18/18 23:00 (1) S/P primary low transverse Code(s): Z98.891 - HISTORY OF UTERINE SCAR FROM PREVIOUS SURGERY Status: Acute (2) Obesity Code(s): E66.9 - OBESITY, UNSPECIFIED Status: Chronic (3) History of IUFD Code(s): Z87.59 - PERSONAL HISTORY OF COMP OF PREG, CHLDBRTH AND THE PUERP Status: Chronic (4) Advanced maternal age (AMA) in Code(s): [id number] - Status: Acute (5) Encounter for elective induction of labor Code(s): Z34.90 - ENCNTR FOR SUPRVSN OF NORMAL , UNSP, UNSP TRIMESTER Status: Acute (6) History of spontaneous , currently Code(s): O09.299 - SUPRVSN OF PREG W POOR REPRODCTV OR OBSTET HISTORY, UNSP TRI Status: Resolved (7) Arrested labor Code(s): O62.1 - SECONDARY UTERINE INERTIA Status: Acute Comment: Second stage, Due to malpostion, asynclitic. Recommended proceding with cesaran delivery. Discussed Risks benefits and alternatives. Patient is tired and prefers delivery. Risks include bleeding, hysterectomy, anesthesia complications, and . Nurses and Anesthesia notified. - Assessment/Plan 37 year old delivered a TAGA M at 23:57 via pLTCS for arrest of 2nd stage of labor. Apgars 8/9. s/p pLTCS - Routine PP care - Incision clean, dry, and intact - Patient feeling well this AM - Desires nexplanon for contraception - Pain well controlled with [place] - Encourage ambulation - Pt high risk, so will start on Lovenox 12 hours after epidural removed (will verify timing with nurses) Possible chorioamnionitis vs endometritis - Patient asymptomatic other than fever; denies abdominal pain and appropriately tender to palpation in abdomen - Scant bleeding - Patient with prolonged labor and >20 hours ROM - Patient started on Gentamicin and Clindamycin for treatment of infection; continue antibiotics - Continue to monitor and monitor infant for s/s of infection. - Patient afebrile since 4 AM - WBC this AM 24 - Repeat CBC in AM; monitor vital signs - Patient being started on lovenox d/t risk factors Dispo: Stable and asymptomatic. Continue to monitor. Anticipate LOS >48 hours. Tiara Warner DO PGY-2 <Tiara Warner - Last Filed: 05/21/18 12:00> Vital Signs (12 hours) Temp Pulse Resp BP Pulse Ox 05/22/18 08:17 97.8 F 71 20 111/61 97 05/22/18 04:26 98.0 F 72 18 101/58 L 05/22/18 00:50 98.5 F 86 18 117/59 L Weight Weight 123.831 kg Result Diagrams: 05/21/18 06:05 Additional Labs: Post Labs Blood Type A NEGATIVE 05/18/18 23:00 Hep Bs Antigen Non-Reactive S/CO (NonReactive) 05/18/18 23:00 <Zo Triana - Last Filed: 05/22/18 09:48> Attending Addendum - Attending Addendum Date/Time: 05/22/18944 I personally evaluated the patient and discussed the management with Dr. Warner I agree with the History, Examination, Assessment and Plan documented above with any addition or exceptions noted below- Patient without complaints. Tolerating clears. Afebrile VSS. A/P: 1) POD#1 s/p 1*LCT C/- H/H stable; continue routine care. Advance diet as tolerated. D/c [place] and begin ambulation. <Zo Triana - Last Filed: 05/22/18 09:48>
[2018-05-21] MEDS: Enoxaparin Sodium 40 MG/0.4 ML SYRINGE SC SCH (14:20)
[2018-05-21] MEDS ORDERED: Bupivacaine/Epinephrine 0.25% 30 ML VIAL ONE (15:56)
[2018-05-21] MEDS: HYDROcodone/Acetaminophen 5/325 mg Tablet PO PRN (17:57)
[2018-05-21] MEDS: Simethicone Chewable 80 MG TAB PO PRN (17:58)
[2018-05-21] MEDS: Ibuprofen 800 MG TAB PO SCH (21:48)
[2018-05-22] MEDS: Misoprostol 100 MCG TAB VAG SCH (00:42)
[2018-05-22] MEDS: HYDROcodone/Acetaminophen 5/325 mg Tablet PO PRN ×5 (00:52→21:51)
[2018-05-22] MEDS: Simethicone Chewable 80 MG TAB PO PRN ×3 (00:54→17:54)
[2018-05-22] MEDS: Gentamicin Sulfate 400 MG in Sodium Chloride 0.9% 100 ML IVPB SCH (04:26)
[2018-05-22] MEDS: Clindamycin/D5W 900 MG in Premix Bag 1 BAG IVPB SCH (05:55)
[2018-05-22] MEDS: Ibuprofen 800 MG TAB PO SCH ×3 (05:55→21:51)
--- NOTE | 2018-05-22 09:09 | PDOC.PP ---
Post Progress Note Post Day #: 2 Subjective: Patient doing well. No significant overnight events. Patient states she has some pain at incision site, but otherwise is doing well. She has not had any fever or chills since right after delivery. Patient has been ambulating and tolerating PO. PO intake tolerated: yes Flatus: yes Ambulation: yes Vital Signs (12 hours) Temp Pulse Resp BP Pulse Ox 05/22/18 08:17 97.8 F 71 20 111/61 97 05/22/18 04:26 98.0 F 72 18 101/58 L 05/22/18 00:50 98.5 F 86 18 117/59 L Weight Weight 123.831 kg - Physical Examination General: NAD Cardiovascular: RRR Respiratory: non-labored breathing Abdominal: + bowel sounds, lochia (Less than period), no distention, appropriately TTP Fundus firm & at: below umbilicus Extremities: negative homans (B) Skin: CS incision dry & intact, no rash Neurological: no gross focal deficits Psychiatric: A&Ox3, normal affect Result Diagrams: 05/21/18 06:05 Additional Labs: Post Labs Blood Type A NEGATIVE 05/18/18 23:00 Hep Bs Antigen Non-Reactive S/CO (NonReactive) 05/18/18 23:00 (1) S/P primary low transverse Code(s): Z98.891 - HISTORY OF UTERINE SCAR FROM PREVIOUS SURGERY Status: Acute (2) Obesity Code(s): E66.9 - OBESITY, UNSPECIFIED Status: Chronic (3) History of IUFD Code(s): Z87.59 - PERSONAL HISTORY OF COMP OF PREG, CHLDBRTH AND THE PUERP Status: Chronic (4) Advanced maternal age (AMA) in Code(s): [id number] - Status: Acute - Assessment/Plan 37 year old delivered a TAGA M infant at 23:57 via pLTCS for arrest of 2nd stage of labor. Apgars 8/9. s/p pLTCS for arrest of 2nd stage of labor - Routine PP care - Incision clean, dry, and intact. Plan to removal yelena and place steri strips prior to d/c. - Patient feeling well this AM; pain well controlled - Desires nexplanon for contraception - Pain well controlled with [place] - Encourage ambulation - Continue lovenox until ambulating more often Possible chorioamnionitis vs endometritis - Patient asymptomatic other than fever; denies abdominal pain and appropriately tender to palpation in abdomen - Scant bleeding; less than period - Afebrile since right after delivery - Patient with prolonged labor and >20 hours ROM - Patient started on Gentamicin and Clindamycin for treatment of infection; continue antibiotics, consider d/c tomorrow AM - Continue to monitor and monitor infant for s/s of infection. - Patient afebrile since 4 AM morning of C/S - Repeat CBC pending - Continue lovenox Rh negative - s/p rhogam PP Cholecystitis - asymptomatic currently. continue to monitor Dispo: Stable. Possible d/c home tomorrow. Tiara Warner, PGY-2 <Tiara Warner - Last Filed: 05/22/18 09:12> Vital Signs (12 hours) Temp Pulse Resp BP Pulse Ox 05/22/18 08:17 97.8 F 71 20 111/61 97 05/22/18 04:26 98.0 F 72 18 101/58 L 05/22/18 00:50 98.5 F 86 18 117/59 L Weight Weight 123.831 kg Result Diagrams: 05/21/18 06:05 Additional Labs: Post Labs Blood Type A NEGATIVE 05/18/18 23:00 Hep Bs Antigen Non-Reactive S/CO (NonReactive) 05/18/18 23:00 <Zo Triana - Last Filed: 05/22/18 09:51> Attending Addendum - Attending Addendum Date/Time: 05/22/18 0949 I personally evaluated the patient and discussed the management with Dr. Warner I agree with the History, Examination, Assessment and Plan documented above with any addition or exceptions noted below- Patient without complaints. Beginning to ambulate. Tolerating diet. Afebrile VSS. A/P: 1) POD#2 s/p 1* LCT C /S- continue to ambualte. Continue current care. <Zo Triana - Last Filed: 05/22/18 09:51>
[2018-05-22] MEDS: Ferrous Sulfate 325 MG TAB PO SCH (09:54)
[2018-05-22] MEDS: Prenatal Vitamin 1 TAB PO SCH (09:54)
[2018-05-22] MEDS: Docusate Calcium (SURFAK) 240 MG CAP PO SCH ×2 (09:54→21:50)
[2018-05-22 12:33] LABS: #Eosinphils 0.2 thou/uL (0.0-0.7); #Lymphocytes 2.5 thou/uL (1.20-3.40); #Neutrophils 9.2 thou/uL (1.40-6.50); %Basophils 0.3 % (0.0-1.0); %Eosinophils 1.8 % (0.0-10.0); %Monocytes 7.7 % (0.0-10.0); %Neutrophils 71.2 % (42.0-75.0); Hemoglobin 10.2 g/dL (12.0-16.0); Mean Corpuscular HGB CONC 33.3 g/dL (32.0-36.0); Mean Corpuscular Hemoglobin 32.4 pg (27.0-31.0); Mean Corpuscular Volume 97.3 fL (78.0-98.0); Mean Platelet Volume 8.3 fL (7.4-10.4); Platelet Count 182 thou/uL (130-400); RBC Distribution Width 12.3 % (11.5-14.5); Red Blood Cell (RBC) Count 3.15 mill/uL (4.20-5.40); White Blood Cell (WBC) Count 12.9 thou/uL (4.8-10.8)
[2018-05-22] MEDS ORDERED: Enoxaparin Sodium 40 MG/0.4 ML SYRINGE SC SCH (14:00)
[2018-05-22] MEDS: Enoxaparin Sodium 40 MG/0.4 ML SYRINGE SC SCH (15:06)
[2018-05-23] MEDS: Ibuprofen 800 MG TAB PO SCH ×2 (05:49→14:18)
[2018-05-23] MEDS: Ferrous Sulfate 325 MG TAB PO SCH ×2 (05:50→10:12)
--- NOTE | 2018-05-23 09:17 | PDOC.PP ---
Post Progress Note Post Day #: 3 Subjective: Patient doing well. No significant overnight events. Patient tolerating PO and ambulating. Patient having some difficulty with and is requesting breast pump and to talk with oncology consultant tomorrow. PO intake tolerated: yes Flatus: yes Ambulation: yes Weight Weight 123.831 kg - Physical Examination General: NAD Cardiovascular: RRR Respiratory: non-labored breathing Abdominal: + bowel sounds, lochia (less than period), no distention, appropriately TTP Extremities: negative homans (B) Skin: CS incision dry & intact, no rash Neurological: no gross focal deficits Psychiatric: A&Ox3, normal affect Result Diagrams: 05/22/18 11:57 Additional Labs: Post Labs Blood Type A NEGATIVE 05/18/18 23:00 Hep Bs Antigen Non-Reactive S/CO (NonReactive) 05/18/18 23:00 (1) S/P primary low transverse Code(s): Z98.891 - HISTORY OF UTERINE SCAR FROM PREVIOUS SURGERY Status: Acute (2) Obesity Code(s): E66.9 - OBESITY, UNSPECIFIED Status: Chronic (3) History of IUFD Code(s): Z87.59 - PERSONAL HISTORY OF COMP OF PREG, CHLDBRTH AND THE PUERP Status: Chronic (4) Advanced maternal age (AMA) in Code(s): [id number] - Status: Acute - Assessment/Plan 37 year old delivered a TAGA M at 23:57 via pLTCS for arrest of 2nd stage of labor. Apgars 8/9. s/p pLTCS for arrest of 2nd stage of labor - Routine PP care - Incision clean, dry, and intact. Plan to keep yelena in place for 5-7 days. - Patient feeling well this AM; pain well controlled - Desires nexplanon for contraception - Pain well controlled with [place]; will transition to tramadol or tylenol #3 upon d/c - Encourage ambulation; patient doing well. Will d/c lovenox. Possible chorioamnionitis vs endometritis - Patient asymptomatic other than fever which has since resolved; denies abdominal pain and appropriately tender to palpation in abdomen - Scant bleeding; less than period - Afebrile since right after delivery - Patient with prolonged labor and >20 hours ROM - Patient started on Gentamicin and Clindamycin for treatment of infection; abx d/c'd yesterday - Continue to monitor and monitor infant for s/s of infection. - Patient afebrile since 4 AM morning of C/S - WBC downtrended Rh negative - s/p rhogam PP Cholecystitis - asymptomatic currently. continue to monitor Dispo: Stable. Patient to stay additional night. Trouble with . Will have patient see oncology consultant tomorrow and try to pump with breast pump if available. Tiara Warner, DO PGY-2 <Tiara Warner - Last Filed: 05/23/18 09:14> Weight Weight 123.831 kg Result Diagrams: 05/22/18 11:57 Additional Labs: Post Labs Blood Type A NEGATIVE 05/18/18 23:00 Hep Bs Antigen Non-Reactive S/CO (NonReactive) 05/18/18 23:00 <Zo Triana - Last Filed: 05/23/18 10:00> Attending Addendum - Attending Addendum Date/Time: 05/23/18957 I personally evaluated the patient and discussed the management with Dr. Warner I agree with the History, Examination, Assessment and Plan documented above with any addition or exceptions noted below- Patient without complaints. Tolerating diet. Ambulating. Afebrile VSS. A/P: 1) POD#2 s/p 1* LCT C/S- fever resolved; off abx x 24 hours now. Continue routine care. D/C lovenox as patient is ambulating well. Anticipate d/c home tomorrow. <Zo Triana - Last Filed: 05/23/18 10:00>
[2018-05-23] MEDS: Docusate Calcium (SURFAK) 240 MG CAP PO SCH (10:11)
[2018-05-23] MEDS: Prenatal Vitamin 1 TAB PO SCH (10:11)
[2018-05-23 10:27] VITALS: BP 103/57; TEMP 97.9
[2018-05-23] MEDS: HYDROcodone/Acetaminophen 5/325 mg Tablet PO PRN (14:18)
== END 2018-05-23 15:00 | disposition home or self-care (01) | DRG 786 ==
LOC: L&D 21:54 → 3SW 05-21 03:05 → EDSTATUS 05-24 10:19
PROVIDERS: ADMIT Family Medicine; ATTEND Family Medicine
PROC: 10D00Z1 Extraction of Products of Conception, Low, Open Approach (ICD-10-PCS; principal; 2018-05-20)
PROC: 3E0P7VZ Introduction of Hormone into Female Reproductive, Via Natural or Artificial Opening (ICD-10-PCS; 2018-05-20)
PROC: 3E033VJ Introduction of Other Hormone into Peripheral Vein, Percutaneous Approach (ICD-10-PCS; 2018-05-20)
DX: O62.1 Secondary uterine inertia (principal); O41.1230 Chorioamnionitis, third trimester, not applicable or unspecified; O75.3 Other infection during labor; Z68.42 Body mass index [BMI] 45.0-49.9, adult; Z3A.39 39 weeks gestation of pregnancy; O99.62 Diseases of the digestive system complicating childbirth; K81.9 Cholecystitis, unspecified; Z37.0 Single live birth; E66.9 Obesity, unspecified; O99.214 Obesity complicating childbirth; Z87.59 Personal history of other complications of pregnancy, childbirth and the puerperium
CPT/HCPCS: 36415; 51702; 85025; 85027; 85461; 86780; 86850; 86900; 86901; 87340; 88307; 90384; 96372; C1726; J0131; J0595; J1580; J1650; J1885; J2210; J2250; J2274; J2405; J2590; J3010; J3490; J7050; S0020

== ENCOUNTER 2019-04-29 05:50 | Inpatient (IN) | payer OTHER ==
[2019-04-29] MEDS ORDERED: HYDROcodone/Acetaminophen 5/325 mg Tablet ONE (06:06)
[2019-04-29] MEDS ORDERED: Ondansetron ODT 4 MG TAB ONE (06:07)
[2019-04-29 06:58] LABS: #Basophils 0.1 thou/uL (0.0-0.2); #Eosinphils 0.4 thou/uL (0.0-0.7); #Lymphocytes 2.7 thou/uL (1.20-3.40); #Monocytes 0.8 thou/uL (0.11-0.59); #Neutrophils 10.8 thou/uL (1.40-6.50); %Basophils 0.4 % (0.0-1.0); %Eosinophils 2.7 % (0.0-10.0); %Lymphocytes 18.4 % (21.0-51.0); %Monocytes 5.5 % (0.0-10.0); Hemoglobin 12.7 g/dL (12.0-16.0); Mean Corpuscular HGB CONC 34.1 g/dL (32.0-36.0); Mean Corpuscular Hemoglobin 32.3 pg (27.0-31.0); Mean Corpuscular Volume 94.7 fL (78.0-98.0); Mean Platelet Volume 7.8 fL (7.4-10.4); Platelet Count 236 thou/uL (130-400); RBC Distribution Width 12.6 % (11.5-14.5); Red Blood Cell (RBC) Count 3.95 mill/uL (4.20-5.40); White Blood Cell (WBC) Count 14.8 thou/uL (4.8-10.8)
[2019-04-29 07:21] LABS: ALT (SGPT) 14 U/L (8-55); AST (SGOT) 12 U/L (5-34); Albumin 3.2 g/dL (3.5-5.0); Alkaline Phosphatase 84 U/L (40-110); Anion Gap 11 mmol/L (10-20); BUN (Urea Nitrogen) 8 mg/dL (7.0-18.7); Bilirubin, Total 0.2 mg/dL (0.2-1.2); Calc. Creatinine Clearance 0 mL/min (70-130); Calcium 8.4 mg/dL (7.8-10.44); Carbon Dioxide 26 mmol/L (22-29); Chloride 103 mmol/L (98-107); Estimated GFR-MDRD Greater than 90; Globulin 2.6 g/dL (2.4-3.5); Glucose 107 mg/dL (70-105); Lipase 20 U/L (8-78); Potassium 3.9 mmol/L (3.5-5.1); Protein, Total 5.8 g/dL (6.0-8.3); Sodium 136 mmol/L (136-145)
[2019-04-29 07:44] LABS: Bilirubin Negative (Negative); Blood, Urine Negative (Negative); Clarity Turbid (Clear); Glucose, Urine (Dipstick) Normal (Negative); Leukocyte 500 Leu/uL (Negative); Nitrite Negative (Negative); Protein, Urine (Dipstick) 50 mg/dL (Neg-Trace); Urobilinogen Normal mg/dL (Less than 2); WBC/HPF Greater than 50 HPF (0-3)
[2019-04-29] MEDS ORDERED: Piperacillin/Tazobactam 3.375 GM VIAL ONE (07:47)
--- NOTE | 2019-04-29 07:47 | ULT ---
RIGHT UPPER QUADRANT ABDOMINAL ULTRASOUND: COMPARISON: None. HISTORY: Abdominal pain that radiates to the back. Nausea and constipation. The patient is 28 weeks . TECHNIQUE: Multiplanar, crow scale, and color Doppler images were obtained in a right upper quadrant abdominal u ltrasound. FINDINGS: The liver is normal in echogenicity without focal lesions or intrahepatic ductal dilatation. The gal lbladder is filled with sludge. Shadowing stones are also seen in the gallbladder. There is gallbla dder wall thickening and a small amount of pericholecystic fluid. The common bile duct is upper limi ts of normal measuring 6 mm. Visualized portions of the pancreas are unremarkable. The right kidney is normal in echogenicity wit hout hydronephrosis or calculus and measures 11.7 cm in length. IMPRESSION: Cholelithiasis with findings suggesting possibly acute cholecystitis. Correlate with liver function tests and white blood cell counts. POS: C
[2019-04-29 07:54] LABS: Bacteria/HPF 1+ HPF (None Seen)
--- NOTE | 2019-04-29 10:37 | PDOC.FPRHP ---
- History of Present Illness Chief Complaint: RUQ pain with nausea History of Present Illness: 38yo 1 9 1 @ 27 wks by 1t teena presents with RUQ pain and nausea since yesterday morning. Pt states she awoke yesterday morning with this RUQ pain1 that radiated around her side and up to her right upper back. The pain was sharp stabbing in nature, and she thought she ate something the night before that was getting her reflux. She took some Alkaseltzer and pain seemed to resolved. She then went out to lunch at [employer] and sooner after had return of the RUQ pain and nausea. Pain continued into the night and she decided to present to the ED for further eval and management. She denies any fever/chills, dysuria, vomiting, CP, SOB, LE edema, RAY's or vision changes. She endorses good movement, no LOF, change in vaginal d/c, or vaginal bleeding. Did have significant RUQ pain with RUQ US probe. She states she had "gallbladder problems" in previous last February and was treated medically inpatient and ultimately had an uneventful course and delivered Apr. She was told to f/u with gen surgery for lap harshil but did not and ultimtately got again 6 months later with current . Current has been unevental and she takes no medications other than PNV and ASA since she has maternal family history of blood clots. She has had workup in the past for multiple miscarriages but has returned negative per pt. H/o Chlamydia with tx and LOC negative during this . ED Course: Given 1L NS bolus, bentyl, norco, and zofran. Started on Zosyn. Notified Dr. Carranza. Called residents for admit and further eval and management. - Allergies/Adverse Reactions Allergies Allergy/AdvReac Type Severity Reaction Status Date / Time No Known Allergies Allergy Verified 04/29/19 12:08 - Home Medications Medication Instructions Recorded Confirmed Type Aspirin [Lo-Dose Aspirin EC] 1 tablet PO DAILY 03/14/18 04/29/19 History Pnv No.95/Ferrous Fum/Folic AC 1 tablet PO DAILY 03/14/18 04/29/19 History [ Multivitamin Tablet] - History PMHx: Multiple miscarriages, negative workup thus far. H/o cholecystitis of with previous . Chlamydia during current with tx and negative LOC. Otherwise unremarkable PMHx. PSHx: None FHx: Maternal history of blood clots, unknown specifics. Social: Denies tob, EtOH, illicits. No new partners for over 2 years. Remote history of Chlamydia in teens and then 1 episode recently, no recurrent STDs. - Review of Systems General: denies: fever/chills Eyes: denies: vision changes ENT: denies: nasal congestion, rhinorrhea Respiratory: denies: cough, congestion, shortness of breath Cardiovascular: denies: chest pain, palpitation, edema Gastrointestinal: reports: nausea, abdominal pain (RUQ with radiation to back and shoulder blades). denies: vomiting, diarrhea, constipation Genitourinary: denies: incontinence, dysuria, polyuria, discharge Skin: denies: rashes Musculoskeletal: denies: pain Neurological: denies: numbness Psychological: denies: anxiety, depression - Vital signs BP: 107/57 HR: 70 RR: 17 Tmax: 98.3 Pox: 98% on RA - Physical Exam Constitutional: NAD, awake, alert and oriented HEENT: EOMI, conjunctiva clear, MMM Neck: supple Heart: RRR, normal S1/S2, no murmurs/rubs/gallops, pulses present, no edema Lungs: CTAB, no respiratory distress, good air movement, no rales/rhonchi, no wheezing Abdomen: soft, bowel sounds present, no masses/distention, other (midly TTP over RUQ under ribs, negative myers, negative psoas, no rebound or guarding) Musculoskeletal: normal structure Neurological: no focal deficit Skin: no rash/lesions Psychiatric: normal mood and affect FMR H&P: Results - Labs Result Diagrams: 04/29/19 06:48 04/29/19 06:48 Lab results: WBC 14.8 thou/uL (4.8-10.8) H 04/29/19 06:48 Hgb 12.7 g/dL (12.0-16.0) 04/29/19 06:48 Hct 37.4 % (36.0-47.0) 04/29/19 06:48 MCV 94.7 fL (78.0-98.0) 04/29/19 06:48 Plt Count 236 thou/uL (130-400) 04/29/19 06:48 Neutrophils % 73.0 % (42.0-75.0) 04/29/19 06:48 Sodium 136 mmol/L (136-145) 04/29/19 06:48 Potassium 3.9 mmol/L (3.5-5.1) 04/29/19 06:48 Chloride 103 mmol/L (98-107) 04/29/19 06:48 Carbon Dioxide 26 mmol/L (22-29) 04/29/19 06:48 BUN 8 mg/dL (7.0-18.7) 04/29/19 06:48 Creatinine 0.64 mg/dL (0.6-1.1) 04/29/19 06:48 Glucose 107 mg/dL (70-105) H 04/29/19 06:48 Calcium 8.4 mg/dL (7.8-10.44) 04/29/19 06:48 Total Bilirubin 0.2 mg/dL (0.2-1.2) 04/29/19 06:48 AST 12 U/L (5-34) 04/29/19 06:48 ALT 14 U/L (8-55) 04/29/19 06:48 Alkaline Phosphatase 84 U/L (40-110) 04/29/19 06:48 Serum Total Protein 5.8 g/dL (6.0-8.3) L 04/29/19 06:48 Albumin 3.2 g/dL (3.5-5.0) L 04/29/19 06:48 Lipase 20 U/L (8-78) 04/29/19 06:48 Urine Ketones Negative mg/dL (Negative) 04/29/19 07:25 Urine Blood Negative (Negative) 04/29/19 07:25 Urine Nitrite Negative (Negative) 04/29/19 07:25 Ur Leukocyte Esterase 500 Bety/uL (Negative) A 04/29/19 07:25 Urine RBC 4-6 HPF (0-3) A 04/29/19 07:25 Urine WBC Greater than 50 HPF (0-3) A 04/29/19 07:25 Ur Squamous Epith Cells 11-20 HPF (0-3) A 04/29/19 07:25 Urine Bacteria 1+ HPF (None Seen) 04/29/19 07:25 - Radiology Interpretation US - abdomen Status: image reviewed by me (cholithiasis with possibly cholecystitis. CBD 6mm) , report reviewed by me FMR H&P: A/P - Problem List (1) Current Visit: Yes Status: Acute Qualifiers: Weeks of gestation: 27 weeks Qualified Code(s): Z3A.27 - 27 weeks gestation of (2) Acute calculous cholecystitis Current Visit: Yes Status: Acute Code(s): K80.00 - CALCULUS OF GALLBLADDER W ACUTE CHOLECYST W/O OBSTRUCTION - Plan 38yo 1 9 1 @ 27 wks by 1t teena presents with RUQ pain and nausea since yesterday morning found to have cholecystitis #Cholecystitis of - RUQ pain with nausea, no fever/chills - RUQ pain with US probe. US demonstrated thickening gallbladder wall and CBD of 6mm with cholelithiasis and concern for cholecystitis - WBC 14.8 - No elevated in LFTs or Lipase - Admit to in home baby sitter - Started on Zosyn in ED, will continue - Zofran for nausea and Tylenol for pain - ED consulted Dr. Carranza, rec medical management as look as pt sxs resolved and clinical status continues to improve. If harshil is needed, would be open, thus would like to medically management and defer harshil till post , apprec recs #SIUP - @ 27.0wks by first trimester US - uneventful thus far - h/o cholecystitis in previous , did not f/u post - endorses good movement, no LOF or vaginal bleeding - cont PNV and ASA - will monitor #Dirty UA - not a clean catch, multiple squamous cells - will repeat UA #History of recurrent miscarriages - On ASA for maternal history of blood clots - Pt reports negative workup in past IVF: LR @ 125cc/hr Diet: NPO Code: Full VTE: SCDs Dispo: Admitted to in home baby sitter for acute cholecystitis of . Will medically manage for now and monitor closely. Dr. Carranza following, apprec recs. Anticipate hospitalization 2-4 days Plan was discussed with patient at beside and pt voiced agreement and understanding of admission and current plan. FMR H&P: Upper Level - Plan Date/Time: 04/29/19 1029 IHair MD, have evaluated this patient and agree with findings/plan as outlined by biology intern resident. Pertinent changes/additions are listed here. Opal Bryant is a 38 year F G 12 P 1 1 9 1 @ 27.0 wks by 1T US who presented to the ED for RUQ pain for one day. Patient states that she has had pain like this in the past and was diagnosed with acute cholecystitis during her last . She was supposed to follow up with gen surg for lap harshil but never made the f/u appt and she got 6 mo later. She has had associated nausea. Pain radiates around right side, described as sharp. Pain improved with robbie seltzer. Denies fever, chills, chest pain, dyspnea. PE Sig for RUQ TTP, +murphys signs, no rebound, rigidity, guarding. Gravid abdomen. Denies ctx, vaginal bleeding, discharge, dysuria. +FM. VSS. In ED, RUQ US showed GB wall thickening, pericholecystic fluid, borderline CBD at 6mm. Gen surg was notified in ED and recommended FMR admit and to consult them. Will admit pt to inpatient/PP for medical management of acute cholecystitis. Consulting gen surg. Continue IVFs and IV zosyn. No s/s of sepsis at this time. NPO until Gen Surg sees patient. Please see biology intern note above for full H &P, which I have reviewed and agree with. Addendum - Attending - Attending Attestation Date/Time: 04/29/19 3516 I personally evaluated the patient and discussed the management with Dr. Boss and team. I agree with the History, Examination, Assessment and Plan documented above with any addition or exceptions noted below. Discussed with Dr. Carranza. Non-operative management if possible. Q shift NST.
[2019-04-29] MEDS ORDERED: Ondansetron PF 4 MG/2 ML Vial IVP PRN (10:43)
[2019-04-29] MEDS ORDERED: Sodium Chloride 0.9% 1,000 ML IV SCH (10:43)
[2019-04-29] MEDS ORDERED: Ondansetron ODT 4 MG TAB SL PRN (10:43)
[2019-04-29] MEDS ORDERED: Calcium Carbonate 500 MG ChewTAB PO PRN (10:57)
[2019-04-29] MEDS ORDERED: Acetaminophen 500 MG TAB PO PRN (10:57)
[2019-04-29] MEDS ORDERED: Ondansetron ODT 4 MG TAB PO PRN (10:57)
[2019-04-29] MEDS: Lactated Ringer's 1,000 ML IV SCH ×3 (11:54→21:00)
[2019-04-29] MEDS: Piperacillin/Tazobactam 3.375 GM in Sodium Chloride 0.9% 100 ML IVPB SCH ×2 (12:02→18:22)
[2019-04-29 12:12] VITALS: BMI 45.7
[2019-04-29] MEDS ORDERED: FLU VACC QS2019-20(6MOS UP)/PF 60 MCG/0.5 ML SYRINGE IM ONE (13:45)
[2019-04-29] MEDS ORDERED: Piperacillin/Tazobactam 3.375 GM in Sodium Chloride 0.9% 100 ML IVPB SCH (14:00)
--- NOTE | 2019-04-29 15:29 | CON ---
DATE OF CONSULTATION: 04/29/2019 REQUESTING PHYSICIAN: Vinh Perez MD HISTORY OF PRESENT ILLNESS: This is a 38-year-old woman, G12, P1, 9 spontaneous abortions, and one intrauterine demise leading to stillbirth. The patient is at 27 weeks intrauterine . She presented to emergency department today complaining of insidious onset right upper quadrant abdominal pain upon awakening yesterday morning. The pain was described as sharp, radiating to her right shoulder and upper back. She took [id number] remedies with temporary improvement of pain. Pain intensified, however, after lunch yesterday and persisted. She admits to some nausea, but no emesis. She denies any abdominal bloating or diarrhea. The patient denies any fevers or chills. She recalls similar episode during her last in February of 2018, at which time, she was at 29 weeks' gestation. She was diagnosed with cholecystitis and cholelithiasis at that time and was successfully managed with antibiotics and diet modifications. PAST MEDICAL HISTORY: Significant for cholelithiasis, multiple pregnancies, and miscarriages. Other pertinent past medical history is significant for obesity with a BMI of 45.8. PAST SURGICAL HISTORY: The patient denies any previous surgeries. SOCIAL HISTORY: The patient denies any cigarette smoking, ethanol, or illicit drug abuse. FAMILY HISTORY: Notable for venous thromboembolisms in the mother. PRE-HOSPITAL MEDICATION: Includes vitamins. ALLERGIES: THE PATIENT DENIES ANY KNOWN DRUG ALLERGIES. REVIEW OF SYSTEMS: Ten-point review of systems is essentially unremarkable except as stated in past medical history and chief complaint. PHYSICAL EXAMINATION: GENERAL: This reveals a 38-year-old morbidly obese woman, who is otherwise coherent, interactive, appears stated age. The patient is alert and oriented x3, appears to be in no acute distress at the time of my evaluation. VITAL SIGNS: Include blood pressure 101/63, pulse is 76, respiratory rate is 18, temperature 99 degrees Fahrenheit, and oxygen saturation is 99% on room air. HEENT: Pupils are equal, round, and reactive to light and accommodation. No scleral icterus is present. HEART: Reveals regular rate and rhythm. No murmurs or gallops auscultated. LUNGS: Clear to auscultation bilaterally. Her breathing is regular and unlabored. ABDOMEN: Soft and morbidly obese, but nontender to palpation. I was unable to palpate the fundus due to the patient's significant abdominal obesity. Liver and spleen are nonpalpable below costal margin. NEUROLOGIC: Reveals no focal deficits present. LABORATORY FINDINGS: Today include CBC with 14,800 white blood cells, hemoglobin and hematocrit 12.7 and 37.4 respectively. Platelet count is 236,000. Metabolic profile; sodium 136, potassium 3.9, chloride is 103, bicarb is 26, BUN 8, creatinine 0.64, glucose 107, total bilirubin is 0.2, AST and ALT are normal at 12 and 14 respectively. Serum alkaline phosphatase is also normal at 84. Serum lipase is normal at 20. I have personally reviewed the abdominal ultrasound, which is remarkable for slightly distended gallbladder with intraluminal gallstones and biliary sludge. Gallbladder wall is thickened. The common bile duct is upper limits of normal for this patient's age at 6 mm in diameter. IMPRESSION: 1. Acute cholecystitis and cholelithiasis. 2. Intrauterine at 27 weeks' gestation in a morbidly obese woman with multiple previous pregnancies and miscarriages. RECOMMENDATIONS: 1. Continue with low-fat diet and antibiotic therapy. 2. We will consider laparoscopic cholecystectomy shortly after delivery. 3. There is no acute surgical indication for this patient at this time as any surgical intervention at 27 weeks of gestation will certainly require open cholecystectomy, which will place this patient at high risk for miscarriage. 4. Above findings and plan has been discussed with the patient and her mother at bedside in the presence of her nurse. 5. The patient and her mother have indicated understanding of information given. I have answered their questions. Thank you again, Dr. Perez for allowing me the opportunity to participate in the care of this patient. Job ID: [id number]
[2019-04-29 15:59] LABS: Bilirubin Negative (Negative); Blood, Urine Negative (Negative); Clarity Clear (Clear); Glucose, Urine (Dipstick) 100 mg/dL (Negative); Leukocyte 250 Leu/uL (Negative); Nitrite Negative (Negative); Protein, Urine (Dipstick) 20 mg/dL (Neg-Trace); Urobilinogen Normal mg/dL (Less than 2)
[2019-04-29 16:08] LABS: Bacteria/HPF 1+ HPF (None Seen)
[2019-04-30] MEDS: Piperacillin/Tazobactam 3.375 GM in Sodium Chloride 0.9% 100 ML IVPB SCH ×2 (00:03→05:37)
--- NOTE | 2019-04-30 03:08 | PRG ---
DATE OF SERVICE: 04/30/2019 SUBJECTIVE: The patient is currently on overflow to the pediatric floor from the surgical floor. She was admitted today with acute cholecystitis and cholelithiasis. The patient currently is unable to undergo operative procedure due to being weeks high-risk gestation. The patient was examined by Dr. Carranza today, who recommended nonoperative management until she is . At the time of my exam, she is tolerating a diet and her pain is controlled. PHYSICAL EXAMINATION: VITAL SIGNS: Stable. Systolic blood pressures, 90s and 100s without tachycardia. She is afebrile. ASSESSMENT: 1. Acute cholecystitis with cholelithiasis. 2. High-risk intrauterine at weeks' gestation secondary to morbid obesity and multiple previous pregnancies and miscarriages. PLAN: Plan will be to continue supportive care, low-fat diet, and antibiotic therapy. Consider laparoscopic cholecystectomy. We will be available as needed. Job ID: [id number]
[2019-04-30] MEDS: Lactated Ringer's 1,000 ML IV SCH (05:43)
[2019-04-30 05:44] LABS: #Basophils 0.1 thou/uL (0.0-0.2); #Eosinphils 0.4 thou/uL (0.0-0.7); #Lymphocytes 2.9 thou/uL (1.20-3.40); #Monocytes 0.7 thou/uL (0.11-0.59); #Neutrophils 8.7 thou/uL (1.40-6.50); %Basophils 0.4 % (0.0-1.0); %Eosinophils 3.3 % (0.0-10.0); %Lymphocytes 22.6 % (21.0-51.0); %Monocytes 5.8 % (0.0-10.0); %Neutrophils 67.9 % (42.0-75.0); Hemoglobin 11.8 g/dL (12.0-16.0); Mean Corpuscular HGB CONC 34.5 g/dL (32.0-36.0); Mean Corpuscular Hemoglobin 32.9 pg (27.0-31.0); Mean Corpuscular Volume 95.4 fL (78.0-98.0); Mean Platelet Volume 8.2 fL (7.4-10.4); Platelet Count 218 thou/uL (130-400); RBC Distribution Width 12.5 % (11.5-14.5); Red Blood Cell (RBC) Count 3.58 mill/uL (4.20-5.40); White Blood Cell (WBC) Count 12.8 thou/uL (4.8-10.8)
[2019-04-30 06:06] LABS: ALT (SGPT) 12 U/L (8-55); AST (SGOT) 11 U/L (5-34); Albumin 2.8 g/dL (3.5-5.0); Alkaline Phosphatase 80 U/L (40-110); Anion Gap 8 mmol/L (10-20); BUN (Urea Nitrogen) 8 mg/dL (7.0-18.7); Bilirubin, Total 0.3 mg/dL (0.2-1.2); Calc. Creatinine Clearance 246 mL/min (70-130); Calcium 7.9 mg/dL (7.8-10.44); Carbon Dioxide 25 mmol/L (22-29); Chloride 107 mmol/L (98-107); Estimated GFR-MDRD Greater than 90; Globulin 2.4 g/dL (2.4-3.5); Glucose 97 mg/dL (70-105); Potassium 3.8 mmol/L (3.5-5.1); Protein, Total 5.2 g/dL (6.0-8.3); Sodium 136 mmol/L (136-145)
--- NOTE | 2019-04-30 07:09 | PDOC.FM ---
- Subjective Subjective: Doing very well this morning, slept well,. no acute events overnight. Ambulating without difficulty, ate lunch and dinner last night with no return of pain, n/v. No fever/chills, CP, SOB, diarrhea/constipation. Had B M yesterday. Urinating without difficulty. Good movement, no LOF or vaginal d/c or bleeding. No RAY or LE edema. - Objective MAR Reviewed: Yes Vital Signs & Weight: Vital Signs (12 hours) Temp Pulse Resp BP Pulse Ox 04/30/19 04:10 98.2 F 71 16 90/55 L 98 04/30/19 00:03 98.7 F 63 16 98/51 L 98 04/29/19 19:55 98.6 F 85 12 94/50 L 98 Weight Weight 124.738 kg I&O: 04/29/19 04/30/19 05/01/19 06:59 06:59 06:59 Intake Total 2139 Output Total 900 Balance 1239 Result Diagrams: 04/30/19 05:19 04/30/19 05:19 Phys Exam - Physical Examination Constitutional: NAD HEENT: moist MMs Neck: supple Respiratory: no wheezing, no rales, no rhonchi, clear to auscultation bilateral Cardiovascular: RRR, no significant murmur, no rub Gastrointestinal: soft, non-tender, no distention, positive bowel sounds gravid Musculoskeletal: no edema Neurological: non-focal Psychiatric: normal affect, A&O x 3 Dx/Plan (1) Status: Acute Qualifiers: Weeks of gestation: 27 weeks Qualified Code(s): Z3A.27 - 27 weeks gestation of (2) Acute calculous cholecystitis Code(s): K80.00 - CALCULUS OF GALLBLADDER W ACUTE CHOLECYST W/O OBSTRUCTION Status: Acute - Plan Plan: 38yo 1 9 1 @ 27.1 wks by 1t teena presented with RUQ pain and nausea since yesterday morning found to have cholecystitis #Cholecystitis complicating - In ED RUQ pain with US probe and nausea. US demonstrated thickening gallbladder wall and CBD of 6mm with cholelithiasis and concern for cholecystitis - WBC 14.8 -> 12.8 - No elevated in LFTs or Lipase, remained WNL on AM repeat labs - Zosyn (10/4) - Zofran for nausea and Tylenol for pain, pain as resolved and tolerating PO well without n/v - VSS, afebrile. Tolerating PO, if continues will d/c IVF. - Gen surg consulted, Dr. Carranza, rec medical management as pt sxs resolving and clinical status continues to improve. If harshil is needed, would be open, thus would like to medically management and defer harshil till post , apprec recs #SIUP - @ 27.1wks by first trimester US - uneventful thus far - h/o cholecystitis in previous , did not f/u post for elective harshil - endorses good movement, no LOF or vaginal bleeding - cont PNV and ASA - will monitor with qshift NST #Dirty UA - not a clean catch, multiple squamous cells - Repeat UA also dirty, asx, will follow culture #History of recurrent miscarriages - On ASA for maternal history of blood clots - Pt reports negative workup in past IVF: LR @ 125cc/hr Diet: Full Code: Full VTE: SCDs Dispo: 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 Will medically manage for now and monitor closely. Dr. Carranza following, apprec recs. Anticipate hospitalization 2-4 days Plan was discussed with patient at beside and pt voiced agreement and understanding of admission and current plan.
--- NOTE | 2019-04-30 15:04 | PRG ---
DATE OF SERVICE: 04/30/2019 SUBJECTIVE: Ms. Bryant is a 38-year-old female, admitted for acute cholecystitis on 28 weeks. The patient reports has been doing better. She tolerated with her low-fat diet. Pain is well controlled. She is able to ambulate well independently. Her vital signs have been stable. PHYSICAL EXAMINATION: GENERAL: The patient is lying down in bed, comfortable with no acute distress. VITAL SIGNS: Temperature 98.7, heart rate 62, respiratory rate 20, O2 saturation 98% on room air, and blood pressure 132/61. LUNGS: Clear bilaterally. HEART: Regular rate and rhythm. ABDOMEN: Soft and nondistended. EXTREMITIES: Neurovascularly intact x4. ASSESSMENT: 1. Acute cholecystitis. 2. Intrauterine at 28 weeks. 3. Morbid obesity. PLAN: Will be to continue supportive care, continue pain control and low-fat diet. We will continue p.o. antibiotic for another 5 to 7 day. In General Surgery standpoint, the patient can be discharged at any time. The patient will be noted by General Surgery while the patient's admission for delivery, so General Surgery will make decision to take gallbladder accordingly. At the same time, if the patient have delivery, General Surgery will follow along. General Surgery will sign off at this time. The patient was seen and evaluated with Dr. Carranza on round this morning. Job ID: [id number] MTDD
[2019-04-30] MEDS: Amoxicillin/Potassium Clav 875 MG TAB PO SCH (20:31)
--- NOTE | 2019-05-01 06:31 | PDOC.FM ---
- Subjective Subjective: Doing very well this morning, no acute events overnight, slept well. Does endorse mild heartburn with eating but well-controlled with Tums. Tolerating PO well without n/v. Voiding without difficulty. Ambulating frequently. Pain completely resolved. No LOF, vaginal bleeding or discharge, endorses good movement. Eager for discharge this morning. - Objective MAR Reviewed: Yes Vital Signs & Weight: Vital Signs (12 hours) Temp Pulse Resp BP Pulse Ox 05/01/19 04:00 97.6 F 74 20 119/57 L 97 04/30/19 23:27 98.7 F 80 20 119/64 97 04/30/19 20:00 98.4 F 88 20 116/72 96 Weight Weight 124.738 kg I&O: 04/29/19 04/30/19 05/01/19 06:59 06:59 06:59 Intake Total 2139 900 Output Total 900 Balance 1239 900 Result Diagrams: 04/30/19 05:19 04/30/19 05:19 Phys Exam - Physical Examination Constitutional: NAD HEENT: moist MMs Neck: supple Respiratory: no wheezing, no rales, no rhonchi, clear to auscultation bilateral Cardiovascular: RRR, no significant murmur, no rub Gastrointestinal: soft, non-tender (Negative myers's.), no distention, positive bowel sounds gravid Musculoskeletal: no edema Neurological: non-focal Psychiatric: normal affect, A&O x 3 Dx/Plan (1) Status: Acute Qualifiers: Weeks of gestation: 27 weeks Qualified Code(s): Z3A.27 - 27 weeks gestation of (2) Acute calculous cholecystitis Code(s): K80.00 - CALCULUS OF GALLBLADDER W ACUTE CHOLECYST W/O OBSTRUCTION Status: Acute - Plan Plan: 38yo 1 9 1 @ 27.2 wks by 1t laureshaneka presented with RUQ pain and nausea found to have cholecystitis #Cholecystitis complicating , sxs resolved - In ED RUQ pain with US probe and nausea. US demonstrated thickening gallbladder wall and CBD of 6mm with cholelithiasis and sludge and concern for cholecystitis - WBC 14.8 -> 12.8. No elevated in LFTs or Lipase, remained WNL on repeat labs - Zosyn x2 days (04/29), transitioned to PO augmentin yesterday, tolerating well - Zofran for nausea and Tylenol for pain, pain has resolved and tolerating PO well without n/v - VSS, afebrile. Tolerating PO, no IVF - Gen surg consulted, Dr. Carranza, rec medical management as pt sxs resolving and clinical status continues to improve. If harshil is needed, would be open, thus would like to medically management and defer harshil till post , apprec recs - Given counseling on foods to avoid during , including fatty/greasy food, that could lead to recurrence of sxs #SIUP - @ 27.2wks by first trimester US - uneventful thus far - h/o cholecystitis in previous , did not f/u post for elective harshil - endorses good movement, no LOF or vaginal bleeding - cont PNV and ASA - will monitor with qshift FHT #Dirty UA - not a clean catch, multiple squamous cells - Repeat UA also dirty with squamous, asx, UCx NG @12hr, cont to follow. 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 Transitioned from Zosyn to Augmentin, sxs resolved and labs unremarkable. Surgery plan for medical management with harshil. Anticipate discharge this afternoon pending clinical course. Plan was discussed with patient at beside and pt voiced agreement and understanding of plan
[2019-05-01 08:18] VITALS: BP 105/64; TEMP 98.2
[2019-05-01] MEDS ORDERED: Aspirin 81 mg Enteric Coated Tablet PO SCH (09:00)
[2019-05-01] MEDS ORDERED: Prenatal Vitamin 1 TAB PO SCH (09:00)
[2019-05-01] MEDS: Amoxicillin/Potassium Clav 875 MG TAB PO SCH (11:02)
--- NOTE | 2019-05-01 18:42 | DIS ---
DATE OF ADMISSION: 04/29/2019 DATE OF DISCHARGE: 05/01/2019 RESIDENT: Nilesh Jeffery MD DISCHARGE ATTENDING: Adair Mccollum MD CONSULTS: Dr. Carranza, General Surgery. PROCEDURES: Abdominal ultrasound on 01/27/2019 demonstrating cholelithiasis with findings suggested probably acute cholecystitis. Correlate with liver function tests and white blood cell counts. PRIMARY DIAGNOSES: 1. Cholecystitis complicating . 2. Single intrauterine . SECONDARY DIAGNOSIS: History of recurrent miscarriages. DISCHARGE MEDICATIONS: 1. Augmentin 875 one tablet p.o. q.12 hours x5 days. 2. Aspirin 81 mg p.o. daily. 3. vitamin one tablet p.o. daily. DISCONTINUED MEDICATIONS: None. HISTORY OF PRESENT ILLNESS AND HOSPITAL COURSE: On the day of admission, the patient is a 38-year-old, G12, P1-1-9-1 at 27 weeks by first trimester ultrasound, who presented with right upper quadrant pain and nausea since yesterday morning. The patient stated that she awoke with right upper quadrant pain that radiated around her right side up into her right back and her right shoulder blade. The pain was sharp and stabbing in nature and thought that she maybe ate something the day before that and given her reflux. She took some [place] and the pain seemed to resolve. The patient then went to lunch at [employer] and soon had return of right upper quadrant pain and nausea and decided to present to the emergency department for further evaluation and management. She denies any fevers, chills , dysuria, vomiting, chest pain, shortness of breath, lower extremity edema, headaches, or vision changes. She endorsed good movement. No loss of fluid. No change in vaginal discharge or vaginal bleeding. She did have significant right upper quadrant pain with right upper quadrant ultrasound probe. The patient states that she had gallbladder problems during previous last February and was treated medically inpatient and ultimately had an uneventful course and delivered on 05/20/2019. She was told to follow up with General Surgery for elective cholecystectomy , however did not follow up and ultimately got again within 6 months of delivery with her current . Current has been uneventful thus far. She takes no medications other than a vitamin and aspirin. She has had workup in the past for multiple miscarriages and so far has been negative per patient. However, does have a maternal family history of blood clots. The patient did have a history of chlamydia with treatment and test of cure negative during this . In the ED, she was given 1 L of normal saline bolus, Bentyl, [place], and Zofran with some resolution of pain and nausea. She was started on Zosyn. Dr. Carranza with General Surgery was consulted for evaluation of possible surgical intervention. [facility] was then called for admission and further evaluation and management. On evaluation, the patient was resting comfortably and had mild right upper quadrant pain as well as mild nausea. Vital signs were stable and afebrile. Initial lab work showed a white blood cell count of 14. Electrolytes and liver function tests all within normal limits. Initial urinalysis showed a leukocyte esterase of 500 , urine wbc's greater than 50, 1+ bacteria, however, was not a clean catch with 11 to 20 squamous epithelial cells. A repeat UA showed similar findings and the urine culture did return negative at 48 hours. The patient was admitted to the floor and continued on Zosyn IV antibiotics. The patient's lab work was trended as per above. The patient's nausea and pain completely resolved over the next [address] Carranza was consulted, who recommended medical management as it appeared the patient's symptoms were improving and recommended close monitoring for any return of symptoms. He states that at this time if cholecystectomy was to be performed, it would most likely need to be an open cholecystectomy that should be avoided if at all possible. He did recommend a followup for an elective cholecystectomy. Baby was monitored with q.shift heart tones that were normal throughout her stay. On the first day of hospitalization with the patient's symptoms improving rapidly and lab work demonstrating a decrease in white blood cell count of 12.8 and vital signs all stable with resolution of symptoms, the patient was transitioned from IV Zosyn to p.o. Augmentin. The patient was monitored overnight for any return of symptoms. On the morning of discharge, the patient was doing well. Eating and drinking without any nausea or vomiting. No return of right upper quadrant pain. Ambulating without any problems, having multiple bowel movements and urinating without difficulty. She endorsed good movement. No loss of fluid. No vaginal discharge or bleeding. Discharge plan was discussed with the patient including a continuation of Augmentin for 5 more days for total of a 7-day course of antibiotics. Appropriate diet was discussed with the patient including avoidance of fatty, greasy, or spicy foods. They could trigger a gallbladder attack. It was also discussed the importance of contraception and follow up with General Surgery for elective cholecystectomy prior to any future pregnancies. The patient voiced agreement understanding of the discharge plan. All questions were answered appropriately. The patient was discharged home to self-care. DISPOSITION: Stable. DISCHARGE INSTRUCTIONS: 1. Location: Home. 2. Diet: Regular as tolerated with limitation of fatty, greasy, or spicy foods. 3. Activity: As tolerated, appropriate for . 4. Followup: The patient should follow up with the Clinic for their previously scheduled appointment on 05/04/2019. Job ID: [id number] WARD
== END 2019-05-01 12:06 | disposition home or self-care (01) | DRG 832 ==
LOC: ERS 05:50 → 3SE 08:16
PROVIDERS: ADMIT Family Medicine; ATTEND Family Medicine
DX: O99.613 Diseases of the digestive system complicating pregnancy, third trimester (principal); K80.00 Calculus of gallbladder with acute cholecystitis without obstruction; Z3A.27 27 weeks gestation of pregnancy; O99.213 Obesity complicating pregnancy, third trimester; E66.01 Morbid (severe) obesity due to excess calories
CPT/HCPCS: 36415; 76705; 80053; 81003; 81015; 83690; 85025; 87086; 96365; 96372; J0500; J2543; J3490; Q0162

== ENCOUNTER 2019-06-18 22:08 | Observation (INO) | payer OTHER ==
[2019-06-18] MEDS ORDERED: hydrALAZINE 20 MG/ML VIAL SLOW IVP PRN (22:52)
[2019-06-18] MEDS ORDERED: Ondansetron ODT 4 MG TAB SL PRN (22:55)
[2019-06-18 22:59] VITALS: BMI 47.8
--- NOTE | 2019-06-18 23:01 | PDOC.FPROB ---
FMR OB H&P: Medications - Current Home Medications: Medication Instructions Recorded Confirmed Type Aspirin [Lo-Dose Aspirin EC] 1 tablet PO DAILY 03/14/18 06/18/19 History Pnv No.95/Ferrous Fum/Folic AC 1 tablet PO DAILY 03/14/18 06/18/19 History [ Multivitamin Tablet] Allergies/Adverse Reactions: Allergies Allergy/AdvReac Type Severity Reaction Status Date / Time No Known Allergies Allergy Verified 06/18/19 22:46 FMR OB H&P: A/P Discussion: Date/Time: 06/18/19 0117 This H&P was discussed with [] and [] who agree with the above documentation and plan.
--- NOTE | 2019-06-18 23:04 | PDOC.LDHP ---
Labor and Delivery H&P HPI: 39YO @ 34.1 WGA by 10 week sono who presents for evaluation for RUQ pain that began this afternoon. Per patient and chart review patient has a h/o cholecystitis in this and last & was recently admitted for it but medically managed w/ Abx. Patient reports eating 4 buffalo wings for dinner yesterday evening and sausage for breakfast this AM and had sudden onset of a RUQ ache/cramp w/ radiation to her R flank @ ~14:00 while sitting at home. Reports that she took some gas-x which helped some and then laid down to rest to see if it would go away but when she woke up the pain was worse and has gotten progressively more severe since its onset. Reports it as being a 4/10 at its start and states it is currently 10/10. Endorses associated nausea w/ 3 episodes of vomiting this evening that were non-bloody, non-bilious. Reports regular movement. Denies any fever/chills, dysuria, abnormal vaginal discharge/pain/bleeding or hematuria. Reports the pain feels similar to the pain she had prior to her last admission. 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, asynclitic presentation to maternal right w/ failure of descent w/ cholecystitis in Current complications: other (H/o Chlamydia with negative GLORIA, obesity , AMA, maternal FH of blood clots) Abnormal US findings: No Past Medical History: obesity h/o cholecystitis Current medications: pre-natali vitamins, other (ASA) Previous surgical history: low tranverse CS Allergies/Adverse Reactions: Allergies Allergy/AdvReac Type Severity Reaction Status Date / Time No Known Allergies Allergy Verified 06/18/19 22:46 Social history: none - Physical Exam Vital signs reviewed and normal: yes General: NAD, resting Heart: RRR Lungs: nonlabored breathing Abdomen: other (gravid but obeses abdomen w/ TTP in RUQ w/ radiation to R flank ; no guarding or rebound noted) - OB Labs Blood type: A RH: positive GBS: unknown - Assessment 39YO @ 34.1 WGA by 10 week sono w/ a h/o cholecystitis in this and her last presenting for evaluation for RUQ pain that began @ ~14:00 today. - Plan -: RUQ pain in : - Given patient's history and location of the pain, most likely etiology is biliary; however cannot r/o nephrolithiasis vs. pyelo given associated flank pain as well. - Patient in mild distress on exam but vitals WNLs. FHTs reassuring w/ accels and moderate variability. No regular contractions noted. No peritoneal signs on exam. - Will obtain basic bloodwork including a CBC, CMP & lipase as well as a cath US. - Abdominal US also ordered to assess gallbladder and B/L kidneys. - Will given PRN zofran for nausea and stadol for pain. Will keep NPO pending labs, sono & US. - Will continue close monitoring for at least 20 minutes. sIUP @ 34.1 WGA: - Aware, follows @ MFM and PNC w/ only reported problem this thus far being recurrent cholecystitis. AMA: - Aware, follow w/ MFM. Obesity: - Aware, follows w/ MFM. h/o recurrent SABs: - Aware, follows w/ MFM and workup since last was negative. Is taking QD ASA 2/2 maternal h/o recurrent blood clots. h/o IUFD @ 31 WGA: - Aware. h/o chlamydia in current : - Aware, s/p negative GLORIA. Dispo: Will give PRN meds for nausea & pain & continue close monitoring on L&D pending labs & imaging. Addendum - Attending - Attending Attestation Date/Time: 06/19/19 0400 I personally evaluated the patient and discussed the management with Dr. Sandoval. I agree with the History, Examination, Assessment and Plan documented above.
[2019-06-18 23:26] LABS: #Basophils 0.1 thou/uL (0.0-0.2); #Eosinphils 0.2 thou/uL (0.0-0.7); #Lymphocytes 2.1 thou/uL (1.20-3.40); #Monocytes 0.9 thou/uL (0.11-0.59); #Neutrophils 11.9 thou/uL (1.40-6.50); %Basophils 0.4 % (0.0-1.0); %Lymphocytes 13.7 % (21.0-51.0); %Monocytes 5.9 % (0.0-10.0); Hemoglobin 12.5 g/dL (12.0-16.0); Mean Corpuscular Hemoglobin 32.8 pg (27.0-31.0); Mean Corpuscular Volume 93.8 fL (78.0-98.0); Platelet Count 222 thou/uL (130-400); RBC Distribution Width 12.3 % (11.5-14.5); Red Blood Cell (RBC) Count 3.81 mill/uL (4.20-5.40); White Blood Cell (WBC) Count 15.1 thou/uL (4.8-10.8)
[2019-06-18 23:46] LABS: ALT (SGPT) 16 U/L (8-55); AST (SGOT) 11 U/L (5-34); Albumin 3.1 g/dL (3.5-5.0); Alkaline Phosphatase 114 U/L (40-110); Anion Gap 12 mmol/L (10-20); BUN (Urea Nitrogen) 9 mg/dL (7.0-18.7); Bilirubin, Total 0.2 mg/dL (0.2-1.2); Calc. Creatinine Clearance 239 mL/min (70-130); Calcium 8.8 mg/dL (7.8-10.44); Carbon Dioxide 25 mmol/L (22-29); Chloride 105 mmol/L (98-107); Estimated GFR-MDRD Greater than 90; Glucose 104 mg/dL (70-105); Lipase 37 U/L (8-78); Potassium 3.7 mmol/L (3.5-5.1); Protein, Total 6.1 g/dL (6.0-8.3); Sodium 138 mmol/L (136-145)
[2019-06-18] MEDS ORDERED: Morphine 4 MG/ML VIAL SLOW IVP PRN (23:52)
[2019-06-18] MEDS ORDERED: Ondansetron PF 4 MG/2 ML Vial IVP PRN (23:52)
[2019-06-19] MEDS ORDERED: Ondansetron ODT 8 MG TAB SL PRN (00:07)
[2019-06-19] MEDS ORDERED: Morphine 4 MG/ML VIAL IM PRN (00:07)
[2019-06-19 00:56] LABS: Bacteria/HPF None Seen HPF (None Seen); Bilirubin Negative (Negative); Blood, Urine Negative (Negative); Clarity Turbid (Clear); Glucose, Urine (Dipstick) Normal (Negative); Leukocyte Negative Leu/uL (Negative); Nitrite Negative (Negative); Protein, Urine (Dipstick) 10 mg/dL (Neg-Trace); RBC/HPF 0-3 HPF (0-3); Squamous Epithelial 0-3 HPF (0-3); Urobilinogen Normal mg/dL (Less than 2); WBC/HPF 0-3 HPF (0-3)
[2019-06-19] MEDS ORDERED: Ondansetron ODT 4 MG TAB PO PRN (01:35)
[2019-06-19] MEDS ORDERED: Ondansetron PF 4 MG/2 ML Vial IVP PRN (01:35)
[2019-06-19] MEDS ORDERED: Morphine 4 MG/ML VIAL SLOW IVP PRN (01:37)
[2019-06-19] MEDS ORDERED: Sodium Chloride 0.9% 10 ML ONE (03:53)
[2019-06-19] MEDS: Sodium Chloride 0.9% 1,000 ML IV SCH ×3 (04:22→19:23)
[2019-06-19] MEDS: Piperacillin/Tazobactam 4.5 GM in Sodium Chloride 0.9% 100 ML IVPB SCH ×3 (05:34→18:10)
[2019-06-19 05:56] LABS: ALT (SGPT) 14 U/L (8-55); AST (SGOT) 11 U/L (5-34); Albumin 2.9 g/dL (3.5-5.0); Alkaline Phosphatase 110 U/L (40-110); Anion Gap 10 mmol/L (10-20); BUN (Urea Nitrogen) 8 mg/dL (7.0-18.7); Bilirubin, Total 0.2 mg/dL (0.2-1.2); Calc. Creatinine Clearance 252 mL/min (70-130); Calcium 8.4 mg/dL (7.8-10.44); Carbon Dioxide 27 mmol/L (22-29); Chloride 106 mmol/L (98-107); Estimated GFR-MDRD Greater than 90; Globulin 2.8 g/dL (2.4-3.5); Glucose 107 mg/dL (70-105); Potassium 3.6 mmol/L (3.5-5.1); Protein, Total 5.7 g/dL (6.0-8.3); Sodium 139 mmol/L (136-145)
[2019-06-19 06:38] LABS: Band 1 % (5-11); Eosinophils 1 % (0-10); Hemoglobin 12.2 g/dL (12.0-16.0); Lymphocytes 15 % (21-51); MDiff Complete? YES; Mean Corpuscular HGB CONC 34.8 g/dL (32.0-36.0); Mean Corpuscular Hemoglobin 32.5 pg (27.0-31.0); Mean Corpuscular Volume 93.7 fL (78.0-98.0); Mean Platelet Volume 8.8 fL (7.4-10.4); Monocytes 4 % (0-10); Neutrophil 79 % (42-75); Platelet Count 222 thou/uL (130-400); RBC Distribution Width 12.3 % (11.5-14.5); Red Blood Cell (RBC) Count 3.75 mill/uL (4.20-5.40); White Blood Cell (WBC) Count 16.5 thou/uL (4.8-10.8)
--- NOTE | 2019-06-19 06:39 | PDOC.BPN ---
- Brief Progress Note 39YO @ 34.2 WGA by 10 week sono w/ a h/o cholecystitis in this and her last presenting for evaluation for RUQ pain that began @ ~14:00 yesterday. RUQ pain in : - Given patient's history and location of the pain, most likely etiology is cholecystitis. WBC elevated to 15 but LFTs WNLs per CMP. Preliminary US read notable for gallbladder wall thickening and sludge but no overy obstruction. B/ L kidneys appear WNLs & UA not concerning for infection. VS stable since admission but patient still reporting severe pain. - Reactive NST so no continuous monitoring needed. - Will given PRN zofran for nausea and IV morphine for pain. - Will make NPO at breakfast pending AM labs & possible need for surgical intervention so will start IVFs w/ NS @ 150mL/hr. - Will give a dose of IV zosyn as well since patient presented exactly the same way with last admission per chart review. - Repeat CBC & CMP in the AM. sIUP @ 34.1 WGA: - Aware, follows @ MFM and PNC w/ only reported problem this thus far being recurrent cholecystitis. AMA: - Aware, follow w/ MFM. Obesity: - Aware, follows w/ MFM. h/o recurrent SABs: - Aware, follows w/ MFM and workup since last was negative. Is taking QD ASA 2/2 maternal h/o recurrent blood clots. h/o IUFD @ 31 WGA: - Aware. h/o chlamydia in current : - Aware, s/p negative GLORIA. Dispo: Will admit to [facility] overnight for OBS and pain control w/ plans to repeat labs in the AM.
--- NOTE | 2019-06-19 07:28 | PDOC.OBAPN ---
FMR OB AP PN: Sub - Interval History Hospital Day: 2 Chief Complaint: nausea Indentification: 39YO @ 34.2 WGA by 10 week sono w/ cholestcystitis in . Interval History: Afebrile overnight & pain improved on exam this AM. FMR OB AP PN: Obj - Maternal Vital signs: BP: 110/62 HR: 66 RR: 18 Tmax: 98.7F Pox: 96% on RA Wt: 122.47 kg - Urine output I&O: 06/18/19 06/19/19 06/20/19 06:59 06:59 06:59 Intake Total 450 Output Total 200 Balance 250 FMR OB AP PN: Exam - Physical Exam General: NAD, awake, alert and oriented HEENT: normocephalic and atraumatic, grossly normal vision, grossly normal hearing Neck: supple, FROM Heart: RRR, normal S1/S2 General: CTAB, no respiratory distress, good air movement, no rales/rhonchi, no wheezing Abdomen: soft, gravid, non-tender, bowel sound present Musculoskeletal: FROM in all four extremities Neurological: cranial nerves II through XII intact, no focal deficit Skin: no rash, good tugor Lymphatic: no unusual bruising or bleeding, no purpura, no petechia Psychiatric: intact recent and remote memory, good judgement and insight, normal mood and affect FMR OB AP PN: Data - Labs Lab results: Laboratory Results - last 24 hr 06/18/19 06/18/19 06/18/19 23:18 23:18 23:25 WBC 15.1 H RBC 3.81 L Hgb 12.5 Hct 35.7 L MCV 93.8 MCH 32.8 H MCHC 35.0 RDW 12.3 Plt Count 222 MPV 8.0 Neutrophils % 79.0 H Neutrophils % (Manual) Band Neuts % (Manual) Lymphocytes % 13.7 L Lymphocytes % (Manual) Monocytes % 5.9 Monocytes % (Manual) Eosinophils % 1.0 Eosinophils % (Manual) Basophils % 0.4 Neutrophils # 11.9 H Lymphocytes # 2.1 Monocytes # 0.9 H Eosinophils # 0.2 Basophils # 0.1 Sodium 138 Potassium 3.7 Chloride 105 Carbon Dioxide 25 Anion Gap 12 BUN 9 Creatinine 0.61 Estimated GFR (MDRD) Greater than 90 Glucose 104 Calcium 8.8 Total Bilirubin 0.2 AST 11 ALT 16 Alkaline Phosphatase 114 H Serum Total Protein 6.1 Albumin 3.1 L Globulin 3.0 Albumin/Globulin Ratio 1.0 L Lipase 37 Urine Color Light-Yellow Urine Clarity Turbid A Urine pH 7.5 Ur Specific [place] 1.019 Urine Protein 10 Urine Glucose (UA) Normal Urine Ketones Negative Urine Blood Negative Urine Nitrite Negative Urine Bilirubin Negative Urine Urobilinogen Normal Ur Leukocyte Esterase Negative Urine RBC 0-3 Urine WBC 0-3 Ur Squamous Epith Cells 0-3 Amorphous Crystals Rare A Urine Bacteria None Seen 06/19/19 06/19/19 05:10 05:10 WBC 16.5 H RBC 3.75 L Hgb 12.2 Hct 35.2 L MCV 93.7 MCH 32.5 H MCHC 34.8 RDW 12.3 Plt Count 222 MPV 8.8 Neutrophils % Neutrophils % (Manual) 79 H Band Neuts % (Manual) 1 L Lymphocytes % Lymphocytes % (Manual) 15 L Monocytes % Monocytes % (Manual) 4 Eosinophils % Eosinophils % (Manual) 1 Basophils % Neutrophils # Lymphocytes # Monocytes # Eosinophils # Basophils # Sodium 139 Potassium 3.6 Chloride 106 Carbon Dioxide 27 Anion Gap 10 BUN 8 Creatinine 0.58 L Estimated GFR (MDRD) Greater than 90 Glucose 107 H Calcium 8.4 Total Bilirubin 0.2 AST 11 ALT 14 Alkaline Phosphatase 110 Serum Total Protein 5.7 L Albumin 2.9 L Globulin 2.8 Albumin/Globulin Ratio 1.0 L Lipase Urine Color Urine Clarity Urine pH Ur Specific [place] Urine Protein Urine Glucose (UA) Urine Ketones Urine Blood Urine Nitrite Urine Bilirubin Urine Urobilinogen Ur Leukocyte Esterase Urine RBC Urine WBC Ur Squamous Epith Cells Amorphous Crystals Urine Bacteria FMR OB AP PN: A/P - Problem List (1) Abdominal pain Current Visit: No Status: Acute Code(s): R10.9 - UNSPECIFIED ABDOMINAL PAIN Qualifiers: Abdominal location: generalized Qualified Code(s): R10.84 - Generalized abdominal pain (2) Advanced maternal age (AMA) in Current Visit: No Status: Acute Code(s): FWJ6754 - (3) Current Visit: No Status: Acute Qualifiers: Weeks of gestation: 27 weeks Qualified Code(s): Z3A.27 - 27 weeks gestation of (4) S/P primary low transverse Current Visit: No Status: Acute Code(s): Z98.891 - HISTORY OF UTERINE SCAR FROM PREVIOUS SURGERY (5) History of IUFD Current Visit: No Status: Chronic Code(s): Z87.59 - PERSONAL HISTORY OF COMP OF PREG, CHLDBRTH AND THE PUERP (6) Obesity Current Visit: No Status: Chronic Code(s): E66.9 - OBESITY, UNSPECIFIED Disposition: RUQ pain in 2/2 suspected acute cholecystitis vs. biliary colic: - WBC up to 16.5 from 15.1 on presentation this AM despite IVFs & IV zosyn overnight; however, patient remained afebrile & HD stable. Repeat CMP WNLs. - Pain completely gone on exam this AM so is likely possible that patient was just having an episode of biliary colic that has not resolved since she has not eaten in at least 12 hours. Will continue PRN zofran for nausea and IV morphine for pain. - Official RUQ US still pending but prelim read notable only for mild gallbladder wall thickening & some sludge but no complete obstruction. - Will consider slowly advancing diet today as nausea improves. - s/p IV zosyn x1. SHAUNA to be given Q6H for now. Will de-escalate pending clinical course. sIUP @ 34.1 WGA: - Aware, follows @ MFM and PNC w/ only reported problem this thus far being recurrent cholecystitis. AMA: - Aware, follow w/ MFM. Obesity: - Aware, follows w/ MFM. h/o recurrent SABs: - Aware, follows w/ MFM and workup since last was negative. Is taking QD ASA 2/2 maternal h/o recurrent blood clots. h/o IUFD @ 31 WGA: - Aware. h/o chlamydia in current : - Aware, s/p negative GLORIA. Dispo: Will continue monitoring closely on the floor pending official US read. Discussion: Date/Time: 06/19/19725 This H&P was discussed with [] and [] who agree with the above documentation and plan. Addendum - Attending - Attending Attestation Date/Time: 06/19/19748 I personally evaluated the patient and discussed the management with Dr. Sandoval. I agree with the History, Examination, Assessment and Plan documented above. Patient resting comfortably. Continue to monitor.
[2019-06-19] MEDS ORDERED: Acetaminophen 500 MG TAB PO PRN (08:34)
--- NOTE | 2019-06-19 10:13 | ULT ---
PRELIMINARY REPORT/[facility]/EMERGENCY AFTER HOURS PROCEDURE PROCEDURE INFORMATION: Exam: US Abdomen Complete Exam date and time: 06/18/2019 11:46 PM Age: 39 years old Clinical history: Other: Ruq pain, HX of gallstones; TECHNIQUE: Imaging protocol: Real-time ultrasound of the abdomen with image documentation. COMPARISON: No relevant prior studies available. FINDINGS: Liver: Normal. No mass. Gallbladder: Multiple stones with extensive sludge. There is gallbladder wall thickening at 4 mm. There is focal sonographic tenderness. Common bile duct: 5 mm. No stones. No dilation. Pancreas: Visualized pancreas is unremarkable. Right kidney: 12.0 cm. No mass. No hydronephrosis. Left kidney: 12..0 cm. No mass. No hydronephrosis. Spleen: Normal. No splenomegaly. Aorta: Normal. No aneurysm. Inferior vena cava: Normal. IMPRESSION: Gallstones with wall thickening and sludge as well as positive sonographic tenderness. Findings consistent with cholecystitis in the appropriate clinical setting. Thank you for allowing us to participate in the care of your patient. Dictated and Authenticated by: Elías Guerra MD 06/19/2019 12:40 AM Central Time ([place] & [place]) FINAL REPORT ABDOMINAL ULTRASOUND: 06/18/2019 HISTORY: Right upper quadrant pain with history of cholelithiasis. COMPARISON: None. TECHNIQUE: Multiplanar crow-scale sonographic imaging of the abdomen obtained. FINDINGS: The imaged pancreas is unremarkable. The distal body and tail are obscured by bowel gas. The imaged a bdominal aorta and IVC appear within normal limits. No focal liver lesion or intrahepatic biliary dil atation. The dashboard developer reports a positive Singer sign. The gallbladder contains significant stones as well a s sludge and there is gallbladder wall thickening, measuring in the 4-5 mm range. The common bile tasha t measures up to 6 mm, upper limits of normal. The right kidney measures 12 cm in craniocaudal dimension and demonstrates no stone, hydronephrosis o r evidence of mass. The spleen measures 11.4 cm, within normal limits. The left kidney measures 12.5 cm in craniocaudal dimension and demonstrates no stone, hydronephrosis or mass. IMPRESSION: Cholelithiasis, gallbladder sludge, gallbladder wall thickening and positive Singer sign, consistent with acute cholecystitis. CODE QA POS: [facility]
--- NOTE | 2019-06-19 14:58 | PDOC.OBAPN ---
FMR OB AP PN: Sub - Interval History Indentification: 9YO @ 34.2 WGA by 10 week sono admitted for cholecystitis. Interval History: Tolerating PO. Denies pain. Feels better. FMR OB AP PN: Obj - Maternal Vital signs: Selected Entries 06/19/19 11:01 Temperature 97.7 F Pulse Rate 70 Blood Pressure 117/62 [Semi-Fowlers] Respiratory 16 Rate O2 Sat by Pulse 96 Oximetry Oxygen Delivery Room Air Method - Urine output I&O: 06/18/19 06/19/19 06/20/19 06:59 06:59 06:59 Intake Total 1100 Output Total 200 Balance 900 FMR OB AP PN: Exam - Physical Exam General: NAD, awake, alert and oriented HEENT: normocephalic and atraumatic, MMM, conjunctiva clear General: no respiratory distress Abdomen: soft, gravid, non-tender Skin: no rash, good tugor, capillary refill <2 seconds, no jaundice FMR OB AP PN: Data - Labs Lab results: Laboratory Results - last 24 hr 06/18/19 06/18/19 06/18/19 23:18 23:18 23:25 WBC 15.1 H RBC 3.81 L Hgb 12.5 Hct 35.7 L MCV 93.8 MCH 32.8 H MCHC 35.0 RDW 12.3 Plt Count 222 MPV 8.0 Neutrophils % 79.0 H Neutrophils % (Manual) Band Neuts % (Manual) Lymphocytes % 13.7 L Lymphocytes % (Manual) Monocytes % 5.9 Monocytes % (Manual) Eosinophils % 1.0 Eosinophils % (Manual) Basophils % 0.4 Neutrophils # 11.9 H Lymphocytes # 2.1 Monocytes # 0.9 H Eosinophils # 0.2 Basophils # 0.1 Sodium 138 Potassium 3.7 Chloride 105 Carbon Dioxide 25 Anion Gap 12 BUN 9 Creatinine 0.61 Estimated GFR (MDRD) Greater than 90 Glucose 104 Calcium 8.8 Total Bilirubin 0.2 AST 11 ALT 16 Alkaline Phosphatase 114 H Serum Total Protein 6.1 Albumin 3.1 L Globulin 3.0 Albumin/Globulin Ratio 1.0 L Lipase 37 Urine Color Light-Yellow Urine Clarity Turbid A Urine pH 7.5 Ur Specific [place] 1.019 Urine Protein 10 Urine Glucose (UA) Normal Urine Ketones Negative Urine Blood Negative Urine Nitrite Negative Urine Bilirubin Negative Urine Urobilinogen Normal Ur Leukocyte Esterase Negative Urine RBC 0-3 Urine WBC 0-3 Ur Squamous Epith Cells 0-3 Amorphous Crystals Rare A Urine Bacteria None Seen 06/19/19 06/19/19 05:10 05:10 WBC 16.5 H RBC 3.75 L Hgb 12.2 Hct 35.2 L MCV 93.7 MCH 32.5 H MCHC 34.8 RDW 12.3 Plt Count 222 MPV 8.8 Neutrophils % Neutrophils % (Manual) 79 H Band Neuts % (Manual) 1 L Lymphocytes % Lymphocytes % (Manual) 15 L Monocytes % Monocytes % (Manual) 4 Eosinophils % Eosinophils % (Manual) 1 Basophils % Neutrophils # Lymphocytes # Monocytes # Eosinophils # Basophils # Sodium 139 Potassium 3.6 Chloride 106 Carbon Dioxide 27 Anion Gap 10 BUN 8 Creatinine 0.58 L Estimated GFR (MDRD) Greater than 90 Glucose 107 H Calcium 8.4 Total Bilirubin 0.2 AST 11 ALT 14 Alkaline Phosphatase 110 Serum Total Protein 5.7 L Albumin 2.9 L Globulin 2.8 Albumin/Globulin Ratio 1.0 L Lipase Urine Color Urine Clarity Urine pH Ur Specific [place] Urine Protein Urine Glucose (UA) Urine Ketones Urine Blood Urine Nitrite Urine Bilirubin Urine Urobilinogen Ur Leukocyte Esterase Urine RBC Urine WBC Ur Squamous Epith Cells Amorphous Crystals Urine Bacteria FMR OB AP PN: A/P - Problem List (1) Third trimester Current Visit: Yes Status: Acute Code(s): Z34.93 - ENCNTR FOR SUPRVSN OF NORMAL PREG, UNSP, THIRD TRIMESTER (2) Acute calculous cholecystitis Current Visit: No Status: Acute Code(s): K80.00 - CALCULUS OF GALLBLADDER W ACUTE CHOLECYST W/O OBSTRUCTION (3) Advanced maternal age (AMA) in Current Visit: No Status: Acute Code(s): QPS7473 - (4) S/P primary low transverse Current Visit: No Status: Acute Code(s): Z98.891 - HISTORY OF UTERINE SCAR FROM PREVIOUS SURGERY (5) History of IUFD Current Visit: No Status: Chronic Code(s): Z87.59 - PERSONAL HISTORY OF COMP OF PREG, CHLDBRTH AND THE PUERP Discussion: Date/Time: 06/19/19 1454 A/P: Acute cholecystitis in - -pt tolerating solids -abdominal exam this afternoon unremarkable, without pain or tenderness -VSS, afebrile -leukocytosis, however normal LFTs and afebrile -since tolerating normal diet, will observe overnight and repeat cbc in the am -curbsided Dr. Quinteros, who recommends a low fat diet and observation during antepartum period in this pt with normal LFTs. Will continue to monitor and formally consult gen surg if pt's status worsens. -pt likely can be dc'd tomorrow pending labs, will close pnc follow-up; may benefit from a dietary consult on "low fat foods" -pt currently on zosyn, would dc after negative cultures for at least 24 hours Addendum - Attending - Attending Attestation Date/Time: 06/19/19 1163 I personally evaluated the patient and discussed the management with Dr. Strange. I agree with the Examination, Assessment and Plan documented above.
--- NOTE | 2019-06-19 20:20 | ULT ---
US Biophysical Profile History: Biophysical profile evaluation Comparison: None. Findings: Biophysical profile score is 8/8. Impression: Biophysical profile score of 8/8.
--- NOTE | 2019-06-19 20:27 | ULT ---
US OB Complete STANDARD History: Hydronephrosis Comparison: None. Findings: Real-time grayscale, color, and spectral analysis of the gravid uterus was performed. Urinary bladder is distended. Severe bilateral hydronephrosis. The placenta is posterior. Appears be a very large umbilical cord cyst near the insertion. heart rate is documented at 132 bpm. The position is vertex. Amniotic fluid volume: 8.8 c m. The average ultrasound age is 34 week 4 day with estimated delivery July 27, 2019. Estimated weight is 6 lbs. 1 oz., 84th percentile. Biometry: Biparietal diameter: 7.82 cm, 31 week 3 day Head circumference: 31.1 cm, 34 week 5 day Abdominal circumference: 33.21 cm, 37 week 1 day Femur length: 6.84 cm, 25 week 1 day Impression: 1. Viable intrauterine . 2. Severe bilateral hydronephrosis with distention of the urinary bladder. 3. Likely a large umbilical cord cyst near the cord insertion. 4. Amniotic fluid index on the left side of normal of 8.8 cm. Patient is being followed by maternal- medicine.
[2019-06-19 21:01] VITALS: BP 129/66; TEMP 98.1
--- NOTE | 2019-06-20 07:30 | PDOC.OBAPN ---
FMR OB AP PN: Obj - Maternal Vital signs: BP: [] HR: [] RR: [] Tmax: [] Pox: []% on [] Wt: [] - Urine output I&O: 06/19/19 06/20/19 06/21/19 06:59 06:59 06:59 Intake Total 1970 Output Total 200 Balance 1770 FMR OB AP PN: A/P Discussion: Date/Time: 06/20/19729 This H&P was discussed with [] and [] who agree with the above documentation and plan.
== END 2019-06-19 20:42 | disposition home or self-care (01) ==
LOC: L&D/OP 22:08 → L&D 06-19 01:36 → 3SW 06-19 03:34
PROVIDERS: ADMIT Family Medicine; ATTEND Family Medicine
DX: O99.613 Diseases of the digestive system complicating pregnancy, third trimester (principal); K80.00 Calculus of gallbladder with acute cholecystitis without obstruction; O99.89 Other specified diseases and conditions complicating pregnancy, childbirth and the puerperium; N13.30 Unspecified hydronephrosis; O09.523 Supervision of elderly multigravida, third trimester; O99.213 Obesity complicating pregnancy, third trimester; E66.9 Obesity, unspecified; O26.23 Pregnancy care for patient with recurrent pregnancy loss, third trimester; O34.211 Maternal care for low transverse scar from previous cesarean delivery; Z3A.34 34 weeks gestation of pregnancy; Z79.82 Long term (current) use of aspirin
CPT/HCPCS: 36415; 59025; 76805; 76819; 80053; 81003; 83690; 85007; 85025; 85027; 93975; 96361; 96365; 96366; 96375; 96376; 99285; G0378; J2270; J2405; J2543; J3490

== ENCOUNTER 2019-07-01 22:58 | Inpatient (IN) | payer OTHER ==
[2019-07-01 23:37] VITALS: BMI 46.3
[2019-07-01] MEDS ORDERED: Azithromycin 500 MG in Sodium Chloride 0.9% 250 ML 250 ML IVPB SCH (23:45)
[2019-07-01] MEDS ORDERED: Bicitra 30 ML UDCUP PO SCH (23:45)
[2019-07-01] MEDS ORDERED: CEFAZOLIN 2 GM in Premix Bag 1 BAG IVPB SCH (23:45)
[2019-07-01] MEDS ORDERED: hydrALAZINE 20 MG/ML VIAL SLOW IVP PRN (23:53)
[2019-07-01] MEDS ORDERED: Promethazine HCl 25 MG/ML VIAL IM PRN (23:53)
[2019-07-01] MEDS ORDERED: Ondansetron PF 4 MG/2 ML Vial IVP PRN (23:53)
[2019-07-01] MEDS ORDERED: Terbutaline Sulfate 1 MG/ML VIAL ONE (23:54)
[2019-07-01] MEDS ORDERED: Bicitra 30 ML UDCUP ONE (23:55)
--- NOTE | 2019-07-02 | PDOC.LDHP ---
Labor and Delivery H&P Chief complaint: contractions HPI: Patient is a 39F @ 36wga that presents with contractions. Per patient the contractions began at 1230pm today. She denies vaginal bleeding. Unsure if she has had loss of fluid because she took a shower when she thought she may have felt fluid loss. She is feeling baby move. This has been complicated by: prior IUFD @ 31wks, maternal obesity, short interval, and AMA. MFM visit on 05/04 demonstrated sIUP, bilateral urinary tract dilation with hydronephrosis, calyceal dilation and hydroureter, with difficulty to determine whether the abdominal wall was intact. She was followed by both [facility] and [facility]FM, last appointment with C that she was able to make was in April per patient. PCP: Timmy- [facility] Current gestational age (weeks): 36 Due date: 07/29/19 Dating criteria: first trimester ultrasound Grav: 12 Para: 1 OB History Details: 1 IUFD born at 31wga 1 born full term via for failure to descend Current complications: other Abnormal US findings: Yes Current medications: pre- vitamins, other (asa) Previous surgical history: low tranverse CS Allergies/Adverse Reactions: Allergies Allergy/AdvReac Type Severity Reaction Status Date / Time No Known Allergies Allergy Verified 07/01/19 23:28 Social history: none - Physical Exam Vital signs reviewed and normal: yes General: breathing through contractions Heart: RRR Lungs: nonlabored breathing Abdomen: NTTP Extremeties: trace edema FHT: category 1, variability present [place] contractions every: 4 - Vaginal Exam cm dilated: 6 - OB Labs Blood type: A RH: negative Antibody Screen: negative RPR: negative HEPSAg: negative GBS: unknown - Assessment L&D Assessment: labor - Plan Plan: admit to L&D, to OR for section -: 39yo @ 36wga presents in labor # labor #previous hx of #concern for non-intact abdominal wall/omphalocele, bilateral hydronephrosis on MFM U/S -patient dilated to 6-7 on exam, has been having ctx since 1230pm today -FHT reactive, baseline 140 -Ctx q4m -VSS -Dr. 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 Warner, Dr. Saldivar, and Dr. Lockhart who are in agreement. Addendum - Attending - Attending Attestation Date/Time: 07/02/19 9378 I personally evaluated the patient and discussed the management with Dr. Hoover. Multiparous LAF with limited PNC, previous C/S and USG with concern of abdominal wall defect. 36 weeks, now 8cm. Will proceed with repeat C/S. I agree with the History, Examination, Assessment and Plan documented above.
[2019-07-02 00:02] LABS: Hemoglobin 12.5 g/dL (12.0-16.0); Mean Corpuscular HGB CONC 35.4 g/dL (32.0-36.0); Mean Corpuscular Hemoglobin 32.9 pg (27.0-31.0); Mean Corpuscular Volume 92.8 fL (78.0-98.0); Mean Platelet Volume 8.4 fL (7.4-10.4); Platelet Count 225 thou/uL (130-400); Red Blood Cell (RBC) Count 3.81 mill/uL (4.20-5.40); White Blood Cell (WBC) Count 14.5 thou/uL (4.8-10.8)
[2019-07-02] MEDS ORDERED: Oxytocin 10 UNITS/ML VIAL ONE (00:05)
[2019-07-02] MEDS ORDERED: MORPHINE 5 MG/10 ML PF VIAL ONE (00:05)
[2019-07-02] MEDS ORDERED: ePHEDrine/0.9% NaCl/PF SYRINGE 50 mg/10 ml ONE (00:15)
[2019-07-02] MEDS ORDERED: PHENYLEPHRINE-NS 100 MCG/ML 10 ML SYRINGE ONE ×2 (00:16→00:18)
[2019-07-02] MEDS ORDERED: Terbutaline Sulfate 1 MG/ML VIAL ONE (00:16)
[2019-07-02] MEDS ORDERED: Dexamethasone 4 mg/ml Vial ONE (00:25)
[2019-07-02] MEDS ORDERED: Ondansetron PF 4 MG/2 ML Vial ONE (00:25)
[2019-07-02] MEDS ORDERED: diphenhydrAMINE 50 MG/ML VIAL IVP PRN (00:30)
[2019-07-02] MEDS ORDERED: Meperidine HCl/PF 25 MG/ML VIAL SLOW IVP PRN (00:30)
[2019-07-02] MEDS ORDERED: Ondansetron HCl/PF 4 MG/2 ML Vial IVP PRN (00:30)
[2019-07-02] MEDS ORDERED: Naloxone HCl 0.4 mg/ml Vial IVP PRN ×2 (00:30)
[2019-07-02] MEDS ORDERED: Ketorolac Tromethamine 30 MG/ML VIAL IVP PRN (00:30)
[2019-07-02] MEDS ORDERED: Naloxone HCl 0.4 mg/ml Vial IV PRN (00:30)
[2019-07-02] MEDS ORDERED: Fentanyl 100 MCG/2 ML VIAL ONE ×2 (00:30→00:39)
[2019-07-02] MEDS ORDERED: Promethazine HCl 25 MG SUPP PR PRN (00:30)
[2019-07-02] MEDS ORDERED: Ondansetron PF 4 MG/2 ML Vial IVP PRN (00:30)
[2019-07-02] MEDS ORDERED: Communication Order-Pharmacy FS SCH (00:30)
[2019-07-02] MEDS ORDERED: Promethazine HCl 25 MG/ML VIAL IM PRN (00:30)
[2019-07-02] MEDS ORDERED: L&D-Morphine 4 MG/ML VIAL SLOW IVP PRN (00:30)
[2019-07-02] MEDS ORDERED: HYDROmorphone 2 MG/ML VIAL SLOW IVP PRN (00:30)
[2019-07-02] MEDS ORDERED: Ketorolac Tromethamine 30 MG/ML VIAL IVP SCH (00:30)
[2019-07-02] MEDS ORDERED: Midazolam HCl 2 mg/2 ml Vial ONE (00:40)
[2019-07-02 00:42] LABS: HBSAg Index 0.25 S/CO (0-0.99); Hep B Surf Ag Non-Reactive S/CO (NonReactive)
[2019-07-02 00:43] LABS: Syphilis Antibody Nonreactive (Nonreactive); Syphilis Antibody Index 0.05 S/CO (<1.00 Non-Reactive)
[2019-07-02] MEDS ORDERED: Azithromycin 500 MG VIAL ONE (00:49)
[2019-07-02 01:35] LABS: Actual Bicarbonate (HCO3v) 25 mEq/L (22-28); Base Excess -1.7 mEq/L (-2.0 to +3.0); pH (Cord, venous) 7.31 (7.32-7.43)
[2019-07-02] MEDS ORDERED: Meperidine HCl/PF 25 MG/ML VIAL ONE (01:54)
[2019-07-02] MEDS ORDERED: NS / Oxytocin 40 units/1000ml 1,000 ML ONE (02:23)
[2019-07-02] MEDS ORDERED: hydrALAZINE 20 MG/ML VIAL SLOW IVP PRN (03:47)
[2019-07-02] MEDS ORDERED: Lanolin Ointment 7 GM TUBE TOP PRN (03:47)
[2019-07-02] MEDS ORDERED: Simethicone Chewable 80 MG TAB PO PRN (03:47)
[2019-07-02] MEDS ORDERED: diphenhydrAMINE 25 MG CAP PO PRN (03:47)
[2019-07-02] MEDS ORDERED: NS / Oxytocin 40 units/1000ml 1,000 ML IV SCH (04:00)
--- NOTE | 2019-07-02 07:25 | PDOC.BPN ---
<Tremayne Garcia - Last Filed: 07/02/19 07:22> - Brief Progress Note Post-Operation Note S: 39F ->2 @ 36wga is s/p LTCS overnight. Patient reports pain is well controlled and minimal bleeding. She has not tried ambulating this morning. O: General: NAD, vital signs WNL CV: RRR, no murmurs Respiratory: CTA-bilaterally Extremities: no edema Abdomen: Soft, nontender, incision site bandage is clean, dry, and intact A/P: 1. s/p LTCS - Continue routine post op care <Kirk Lockhart - Last Filed: 07/03/19 08:36> Addendum - Attending - Attending Attestation Date/Time: 07/03/19 0836 I personally evaluated the patient and discussed the management with Dr. Garcia. I agree with the History, Examination, Assessment and Plan above.
[2019-07-02] MEDS: Ferrous Sulfate 325 MG TAB PO SCH ×2 (08:52→16:46)
[2019-07-02] MEDS: Docusate Calcium (SURFAK) 240 MG CAP PO SCH ×2 (08:52→21:49)
[2019-07-02] MEDS: Prenatal Vitamin 1 TAB PO SCH (08:52)
[2019-07-02] MEDS ORDERED: Adacel (T-DAP) 0.5 ML SYRINGE IM ONE (09:00)
[2019-07-02] MEDS: Lactated Ringer's 1,000 ML IV SCH ×2 (12:08)
--- NOTE | 2019-07-02 12:21 | OP ---
DATE OF PROCEDURE: 07/02/2019 RESIDENT SURGEON: Tiara Warner DO RECREATION ESTABLISHMENT MANAGER SURGEON: Jenn Saldivar MD ATTENDING PHYSICIAN: Blaise Lockhart MD PROCEDURE PERFORMED: Repeat low-transverse section. PREOPERATIVE DIAGNOSES: 1. labor. 2. Previous section x1. 3. Short interval. 4. Concern for anomaly including possibility of omphalocele and known severe bilateral hydronephrosis. 5. Inconsistent care. 6. Spontaneous x9. 7. History of intrauterine demise. 8. Morbid obesity. POSTOPERATIVE DIAGNOSES: 1. intrauterine , delivered. 2. Previous section x1. 3. Short interval. 4. Concern for anomaly including possibility of omphalocele and known severe bilateral hydronephrosis. 5. Inconsistent care. 6. Spontaneous x9. 7. History of intrauterine demise. 8. Morbid obesity. ANESTHESIA: Spinal. INDICATIONS: This is a 39-year-old, G12, now P1-2-9-2, who presented to Labor and Delivery in active labor at 36 weeks' gestation. The patient has had fragmented care. Of note, she was seen by M at approximately 28 weeks' gestation, at which time, she had an anatomy ultrasound that revealed concerns about an absent anterior abdominal wall. Additionally, the fetus was noted to have severe bilateral hydronephrosis at that time. The patient presented to the hospital approximately 2 weeks ago, at which time, an ultrasound was performed again and revealed what was concerning for an omphalocele. was again noted to have severe hydronephrosis at that time. The patient has not had any followup since approximately 28 weeks aside from her hospitalization for cholecystitis approximately 2 weeks ago. Given concern from omphalocele as well as previous C-sections and short interval, the patient was taken back for stat . PROCEDURE IN DETAIL: After risks, benefits, and alternatives were explained to the patient, she gave informed consent. Preoperative antibiotics included cefazolin 2 g IV and 500 mg of azithromycin. The patient was taken to the operating room and spinal anesthesia was initiated. She was placed in the supine position with a left tilt and prepped and draped in the usual sterile fashion. A Pfannenstiel incision was made with a scalpel and carried down to the level of fascia, which was sharply nicked. The fascial cut was extended bilaterally with Krishna scissors. Inferior and superior edges of the cut fascial edges were elevated with Kristina clamps and the underlying rectus muscles were sharply and bluntly dissected free. The recti were divided digitally and retracted manually. The peritoneum was entered bluntly and retracted manually. A bladder blade was placed. A low transverse score was made with a scalpel and the uterus was entered in the midline with a scalpel. Clear fluid was seen. Hysterotomy was extended manually. was noted to be vertex and was easily delivered with fundal pressure. Mouth and nares were bulb suctioned. Cord was clamped and cut and grossly normal female was handed to the waiting nurse. At this time, no omphalocele or gastroschisis was noted. Cord blood was obtained. Placenta was manually extracted, found to be intact with three-vessel cord and sent for pathology given concern for multiple anomalies. The placenta had what looked like a fluid collection upon examination. Uterus was externalized and endometrium was curetted with a dry lap. The bladder blade was placed and the uterus was closed with a running locking #1 Monocryl suture. Of note, there was a slight right-sided lateral uterine extension, which was closed with #1 chromic suture. This did not extend into the broad ligament or uterine artery. The space was successfully closed and hysterotomy was noted to be hemostatic. The uterus was internalized and hysterotomy was again noted to be hemostatic. The muscles were examined and bleeders were cauterized. The fascia was then closed with a running nonlocking 0 PDS suture. The subcutaneous tissue was irrigated and bleeders were cauterized. The subcutaneous tissue was then brought together using 2-0 plain gut in simple interrupted fashion with multiple layers. The skin was approximated with yelena and JAMES wound VAC was placed. A pressure dressing was then placed over the wound VAC. All counts were correct. The patient tolerated the procedure well, was taken to the recovery room in stable condition. ESTIMATED BLOOD LOSS: 700 mL. COMPLICATIONS: None. SPECIMENS: Cord blood sent to lab for blood type. Placenta sent for pathology. Cord gas sent for analysis. FINDINGS: Grossly normal female infant with Apgars of 8 and 9 at one and five minutes respectively. DRAINS: Campos to gravity, draining clear urine. Present to attend this C/S. Multip at 36 weeks in active labor with h/o prev. C/S, h/o suspected abdominal wall defect, poor followup and recent departure from hospital AMA. Details as above. Baby to Nursery with Peds staff. Pt. to recover in L&D. Job ID: [id number] MTDD
[2019-07-02] MEDS ORDERED: HYDROcodone/Acetaminophen 5/325 mg Tablet PO PRN ×2 (12:30)
[2019-07-02] MEDS: Ibuprofen 800 MG TAB PO SCH (21:49)
[2019-07-03 04:43] LABS: Hemoglobin 10.7 g/dL (12.0-16.0); Mean Corpuscular HGB CONC 34.4 g/dL (32.0-36.0); Mean Corpuscular Hemoglobin 32.8 pg (27.0-31.0); Mean Corpuscular Volume 95.2 fL (78.0-98.0); Mean Platelet Volume 8.2 fL (7.4-10.4); Platelet Count 154 thou/uL (130-400); RBC Distribution Width 12.3 % (11.5-14.5); Red Blood Cell (RBC) Count 3.26 mill/uL (4.20-5.40); White Blood Cell (WBC) Count 12.2 thou/uL (4.8-10.8)
[2019-07-03] MEDS: Ibuprofen 800 MG TAB PO SCH ×3 (05:18→22:07)
--- NOTE | 2019-07-03 07:41 | PDOC.PP ---
Post Progress Note Post Day #: 1 Subjective: Pt reports some pain when getting up when walking. Reports pain well controlled with current regimen. Reports lochia same as period. Denies any fever or chills. Denies any acute events overnight. Denies any swelling, SOB, or chest pain. PO intake tolerated: yes Flatus: yes Ambulation: yes Vital Signs (12 hours) Temp Pulse Resp BP Pulse Ox 07/03/19 05:15 97.8 F 64 18 103/60 07/03/19 00:40 97.7 F 61 18 102/57 L 07/02/19 20:35 98.2 F 81 18 101/58 L 98 Weight Weight 122.47 kg - Physical Examination General: NAD Cardiovascular: no m/r/g, RRR Respiratory: clear to auscultation bilaterally, non-labored breathing Abdominal: + bowel sounds, lochia (reports same as normal period.), no distention, appropriately TTP (Singer sign negative.) Fundus firm & at: below umbilicus Extremities: negative homans (B) Skin: CS incision dry & intact (wound vac in place. NO redness, heat or swelling noted. No drainage noted.), no rash Neurological: no gross focal deficits Psychiatric: A&Ox3, normal affect Result Diagrams: 07/03/19 04:05 Additional Labs: Post Labs Blood Type A NEGATIVE 07/01/19 23:45 Hep Bs Antigen Non-Reactive S/CO (NonReactive) 07/01/19 23:45 (1) Status: Acute Qualifiers: Weeks of gestation: 27 weeks Qualified Code(s): Z3A.27 - 27 weeks gestation of (2) S/P primary low transverse Code(s): Z98.891 - HISTORY OF UTERINE SCAR FROM PREVIOUS SURGERY Status: Acute (3) Obesity Code(s): E66.9 - OBESITY, UNSPECIFIED Status: Chronic (4) Cholelithiasis Code(s): K80.20 - CALCULUS OF GALLBLADDER W/O CHOLECYSTITIS W/O OBSTRUCTION Status: Acute - Assessment/Plan 39yo ->2 delivered F @ 36.1 weeks via rLTCS on 07/02 @00: 21. Post Op Day #1 -Pain well controlled -Routine post /post op care. -Hgb 10.7 this am. QBL 243. EBL 700. VSS -continue to monitor. Likely D/C tmrw Cholelithiasis -Pt had episode of acute cholecystitis earlier in which was tx with zosyn abx and pt then left AMA. Has been dealing with pain related throughout -No pain at this time. Singer sign negative. No fevers noted. -Plan for general surgery referral outpatient.
[2019-07-03] MEDS: Docusate Calcium (SURFAK) 240 MG CAP PO SCH ×2 (09:00→22:07)
[2019-07-03] MEDS: Prenatal Vitamin 1 TAB PO SCH (09:00)
[2019-07-03] MEDS: Ferrous Sulfate 325 MG TAB PO SCH ×2 (09:01→17:07)
[2019-07-04] MEDS: Ibuprofen 800 MG TAB PO SCH ×2 (05:00→13:16)
[2019-07-04 08:08] VITALS: BP 117/68; TEMP 98.5
[2019-07-04] MEDS: Docusate Calcium (SURFAK) 240 MG CAP PO SCH (08:30)
[2019-07-04] MEDS: Prenatal Vitamin 1 TAB PO SCH (08:30)
[2019-07-04] MEDS: Ferrous Sulfate 325 MG TAB PO SCH ×2 (08:31→17:06)
--- NOTE | 2019-07-04 09:32 | PDOC.PP ---
Post Progress Note Post Day #: 2 Subjective: Patient doing well. No significant overnight events. Patient tolerating PO, ambulating without difficulty, passing flatus. Patient with bruise near umbilicus that has stayed contained to one area. It is not bother patient. Wound vac still in place. Patient overall doing well. PO intake tolerated: yes Flatus: yes Ambulation: yes Vital Signs (12 hours) Temp Pulse Resp BP Pulse Ox 07/04/19 07:20 98.5 F 71 20 117/68 97 Weight Weight 122.47 kg - Physical Examination General: NAD Cardiovascular: RRR Respiratory: non-labored breathing Abdominal: + bowel sounds, lochia (similar to period), no distention, appropriately TTP Fundus firm & at: below umbilicus Extremities: negative homans (B) Deviation from normal: Wound vac in place, clean and dry, Ecchymosis below umbilicus Neurological: no gross focal deficits Psychiatric: A&Ox3, normal affect Result Diagrams: 07/03/19 04:05 Additional Labs: Post Labs Blood Type A NEGATIVE 07/01/19 23:45 Hep Bs Antigen Non-Reactive S/CO (NonReactive) 07/01/19 23:45 (1) S/P repeat low transverse Code(s): Z98.891 - HISTORY OF UTERINE SCAR FROM PREVIOUS SURGERY Status: Acute (2) Advanced maternal age (AMA) in Code(s): HLE5305 - Status: Acute (3) History of IUFD Code(s): Z87.59 - PERSONAL HISTORY OF COMP OF PREG, CHLDBRTH AND THE PUERP Status: Chronic (4) Obesity Code(s): E66.9 - OBESITY, UNSPECIFIED Status: Chronic - Assessment/Plan 39 year old G12 now P1292 at 36.1 wks delivered PAGA F at 00:21 on 07/04 Routine PP care - Post op day #2 - Patient meeting PP milestones - Rh -, s/p rhogam - Rubella immune - Patient advised to schedule PP appt for Thursday to have wound vac and yelnea removed Rh negative - s/p rhogam AMA Maternal obesity - Wound vac in place - Wound vac to be removed on Thursday Poor PNC - CM consulted; pending CM recommendations Dispo: D/c home today.
[2019-07-04 13:49] LABS: HIV (1/2) Antibody/Antigen Non-Reactive (NonReactive); HIV 1/2 INDEX 0.11 S/CO (<1.00)
== END 2019-07-04 17:40 | disposition home or self-care (01) | DRG 786 ==
LOC: L&D/OP 22:58 → L&D 07-02 01:02 → 3SW 07-02 04:34
PROVIDERS: ADMIT Obstetrics & Gynecology; ATTEND Obstetrics & Gynecology
PROC: 10D00Z1 Extraction of Products of Conception, Low, Open Approach (ICD-10-PCS; principal; 2019-07-02)
DX: O34.211 Maternal care for low transverse scar from previous cesarean delivery (principal); O60.14X0 Preterm labor third trimester with preterm delivery third trimester, not applicable or unspecified; Z3A.36 36 weeks gestation of pregnancy; Z37.0 Single live birth; E66.01 Morbid (severe) obesity due to excess calories; O99.62 Diseases of the digestive system complicating childbirth; K80.20 Calculus of gallbladder without cholecystitis without obstruction
CPT/HCPCS: 36415; 82805; 85027; 85461; 86780; 86850; 86900; 86901; 87340; 87389; 90384; 96372; J0456; J0690; J1100; J1885; J2175; J2250; J2274; J2405; J2590; J3010; J3105

== ENCOUNTER 2022-09-12 07:27 | Emergency (ER) | payer OTHER ==
[2022-09-12 08:49] LABS: Hemoglobin 12.3 g/dL (12.0-16.0); Mean Corpuscular HGB CONC 34.6 g/dL (32.0-36.0); Mean Corpuscular Hemoglobin 32.1 pg (27.0-31.0); Mean Corpuscular Volume 92.7 fl (78.0-98.0); Mean Platelet Volume 7.8 fL (7.4-10.4); Platelet Count 363 10x3/uL (130-400); RBC Distribution Width 11.9 % (11.5-14.5); Red Blood Cell (RBC) Count 3.84 mill/uL (4.20-5.40); White Blood Cell (WBC) Count 20.2 10x3/uL (4.8-10.8)
[2022-09-12] MEDS ORDERED: Ampicillin 2 GM VIAL ONE (08:56)
[2022-09-12 09:06] LABS: ALT (SGPT) 42 U/L (8-55); AST (SGOT) 25 U/L (5-34); Albumin 3.3 g/dL (3.5-5.0); Alkaline Phosphatase 142 U/L (40-110); Anion Gap 13 mmol/L (10-20); BUN (Urea Nitrogen) 7 mg/dL (7.0-18.7); Bilirubin, Total 0.5 mg/dL (0.2-1.2); Calc. Creatinine Clearance 0 mL/min (70-130); Calcium 8.9 mg/dL (7.8-10.44); Carbon Dioxide 22 mmol/L (22-29); Chloride 103 mmol/L (98-107); Estimated GFR 116; Globulin 3.3 g/dL (2.4-3.5); Glucose 105 mg/dL (70-105); Lipase 20 U/L (8-78); Potassium 3.6 mmol/L (3.5-5.1); Protein, Total 6.6 g/dL (6.0-8.3); Sodium 134 mmol/L (136-145)
[2022-09-12 09:12] LABS: Band 2 % (5-11); Eosinophils 2 % (0-10); Lymphocytes 7 % (21-51); MDiff Complete? YES; Monocytes 8 % (0-10); Neutrophil 74 % (42-75); Platelet Morphology Comment Appears Adequate; Polychromasia SLIGHT = 2-3 cells (100X) (0-2/hpf); Reactive Lymphocytes 7 % (0-10)
== END 2022-09-12 09:24 | disposition short-term general hospital (02) ==
LOC: ERS 07:27
DX: O60.03 Preterm labor without delivery, third trimester (principal); O41.1230 Chorioamnionitis, third trimester, not applicable or unspecified; O42.913 Preterm premature rupture of membranes, unspecified as to length of time between rupture and onset of labor, third trimester; D72.829 Elevated white blood cell count, unspecified; Z3A.34 34 weeks gestation of pregnancy
CPT/HCPCS: 80053; 83690; 84702; 85025; 86850; 86900; 86901; 90384; 94760; 96365; 96372; 96374; J0290; J1580; J3490